=== PATIENT | male | born 1960 | race Caucasian/White ===

== ENCOUNTER 2017-01-07 06:08 | Day surgery (SDC) | payer MEDICARE ==
[2017-01-07] MEDS ORDERED: Lactated Ringers 1,000 ML IV SCH (06:30)
[2017-01-07] MEDS ORDERED: Lactated Ringers 0 ML IV ONE (07:59)
[2017-01-07] MEDS ORDERED: DIPRIVAN 200 MG/20 ML IV ONE (08:00)
[2017-01-07 09:28] VITALS: BP 124/82; PULSE 87; O2SAT 96
--- NOTE | 2017-01-07 13:09 | OP ---
SURGERY DATE/TIME: 01/07/2017 0755 PREOPERATIVE DIAGNOSIS: History of colon polyps. POSTOPERATIVE DIAGNOSIS: Small rectal polyp. PROCEDURE: Colonoscopy with biopsy. SURGEON: Dr. Virk. ANESTHESIA: MAC. Medications given by anesthesia department. HISTORY: The patient is a 56 year-old white male patient presenting now for his third colonoscopy. He reports the previous two times he has had colon polyps removed. The patient was reappraised of the risks of the procedure including the risk of perforation, phlebitis, untoward reaction to medication, bleeding, and missed lesions. The patient verbalized his understanding and desired to have the procedure performed. DESCRIPTION OF PROCEDURE: The patient was given the medications by the anesthesia department. He had continuous pulse oximetry, ECG monitoring, intermittent blood pressure monitoring, and tidal CO2 monitoring during the examination. He was placed in the left lateral decubitus position. A digital rectal examination was performed and revealed normal anal sphincter tone and no masses and normal prostate. The flexible Olympus pediatric colonoscope was used to intubate the rectum. A view of the colon was developed sequentially to the cecum. Upon insertion and withdrawal was noted a small polyp in the rectum and this was biopsied using cold biopsy technique destroying the lesion. The scope was removed from the patient who tolerated the procedure well and was sent back to OP recovery in good condition. The prep was noted to be good.
== END 2017-01-07 09:05 | disposition home or self-care (01) ==
LOC: SDC 06:08
PROVIDERS: ATTEND Family Medicine
PROC: 0DBP8ZX Excision of Rectum, Via Natural or Artificial Opening Endoscopic, Diagnostic (ICD-10-PCS; principal; 2017-01-07)
DX: K62.1 Rectal polyp (principal); Z86.010 Personal history of colon polyps
CPT/HCPCS: 00810; 36415; 88305; J2704

== ENCOUNTER 2018-05-04 10:30 | Emergency (ER) | payer MEDICARE ==
[2018-05-04] MEDS ORDERED: Sodium Chloride 0.9% 1000 ML 1,000 ML IV STA (10:51)
--- NOTE | 2018-05-04 11:00 | ERPHSYRPT ---
- History of Present Illness Time Seen by Provider: 05/04/18 10:54 Source: patient Patient Subjective Stated Complaint: pt states on friday he was sitting in chair had heart burn and then passed out in chair, and was not seen at that time , today he states he is still dizzy, pain to right rib area, no cough or fever Triage Nursing Assessment: pt alert, walked in, resp easy, skin w/d/p. no edema , no cough. pt uses vapor cigs Physician History: mild to mod right chest pain ache and syncope on Friday, o/w no injury, feels unsteady, no visual disturbance, no fever Allergies/Adverse Reactions: Sulfa (Sulfonamide Antibiotics) Allergy (Mild, Verified 05/04/18 10:46) n/v hot cold Home Medications: Clonazepam [Klonopin] 1 mg PO BID 01/15/13 [History] Cyclobenzaprine HCl 10 mg [Cyclobenzaprine 10 MG] 10 mg PO BID 01/15/13 [ History] Fluoxetine HCl 20 mg [Prozac 20 MG] 40 mg PO DAILY 01/15/13 [History] Pregabalin [Lyrica] 300 mg PO BID PRN 01/15/13 [History] Esomeprazole Magnesium [Nexium] 40 mg PO DAILY PRN PRN 09/04/13 [History] Omeprazole 20 MG [Prilosec 20 mg] 20 mg PO BID 09/04/13 [History] Levothyroxine Sodium 50 Mcg [Synthroid 50 Mcg] 50 mcg PO DAILY 12/03/15 [ History] Lisinopril 10 mg [Zestril 10 MG] 20 mg PO HS 12/03/15 [History] Lovastatin 20 mg PO HS 12/03/15 [History] [place]-3/Dha/Epa/Fish Oil [Fish Oil Dr 500 mg Softgel] 3,000 mg PO BID 12/03/15 [ History] Insulin Aspart [Novolog Flexpen] 10 unit SQ UD 01/07/17 [History] Insulin Glargine,Hum.rec.anlog [Lantus] 60 unit SQ HS 01/07/17 [History] Hx Influenza Vaccination/Date Given: No Hx Pneumococcal Vaccination/Date Given: No Immunizations Up to Date: Yes - Past Medical History Pertinent Past Medical History: Yes Neurological History: Migraines, Peripheral Neuropathy ENT History: No Pertinent History Cardiac History: Hypertension Respiratory History: Pneumonia Endocrine Medical History: Diabetes Type II Musculoskeletal History: Arthritis, Fibromyalgia, Fractures, Osteoarthritis GI Medical History: GERD, Hemorrhoids, Irritable Bowel, Polyps History: No Pertinent History Psycho-Social History: Anxiety, Depression, Panic Disorder Male Reproductive Disorders: Other Other Medical History: forgetfullness thats progressive - Past Surgical History Past Surgical History: Yes Neuro Surgical History: No Pertinent History Cardiac: No Pertinent History Respiratory: No Pertinent History Gastrointestinal: No Pertinent History, Other Genitourinary: No Pertinent History Musculoskeletal: Orthopedic Surgery Male Surgical History: No Pertinent History Other Surgical History: back, rt side carpal tunnel surgery, wart removal, colonoscopy with polyp removal. - Social History Smoking Status: Never smoker How long have you smoked: 40 Exposure to second hand smoke: Yes Drug Use: marijuana Patient Lives Alone: No - Review of Systems Constitutional: No Fever Eyes: No Vision Changes Ears, Nose, & Throat: No Mouth Pain Respiratory: No Dyspnea Cardiac: Chest Pain Abdominal/Gastrointestinal: No Vomiting Genitourinary Symptoms: No Dysuria Musculoskeletal: No Neck Pain Skin: No Rash Neurological: Dizziness Physical Exam - Nursing Vital Signs Nursing Vital Signs: Initial Vital Signs Temperature 97.2 F 05/04/18 10:33 Pulse Rate 85 05/04/18 10:33 Respiratory Rate 16 05/04/18 10:33 Blood Pressure 162/87 05/04/18 10:33 O2 Sat by Pulse Oximetry 98 05/04/18 10:33 Pain Scale Pain Intensity 3 - Juan Coma Scale Best Eye Response (Juan): (4) open spontaneously Best Verbal Response (Juan): (5) oriented Best Motor Response (Juan): (6) obeys commands [place] Total: 15 - Physical Exam Eye Exam: bilateral eye: PERRL, EOMI Ears, Nose, Throat Exam: normal ENT inspection Neck Exam: normal inspection Respiratory: lungs clear, No respiratory distress Cardiovascular: regular rate/rhythm Gastrointestinal: soft, No tenderness Extremity Exam: normal range of motion Mental Status: alert, oriented x 3, cooperative screen stretcher Exam: normal speech, PERRL Motor/Sensory: no motor deficit Skin Exam: normal color, warm, dry SpO2 Interpretation: normal SpO2: 98 Oxygen Delivery: Room Air - Course Nursing assessment & vital signs reviewed: Yes EKG Interpreted by Me: Other (nsr 70 no stemi, similar to 11/2015) - Radiology Exams Chest X-ray Interpretation: Discussed w/ radiologist, Negative - CT Exams Head CT Interpretation: Discussed w/radiologist, Other (no bleed) Ordered Tests: Active Orders 24 hr Category Date Time Status It Security Architect STAT Care 05/04/18 10:51 Active EKG-ER Only STAT Care 05/04/18 10:51 Active IV Insertion STAT Care 05/04/18 10:51 Active Nursing [Miscellaneous Nursing Order] ROUTINE Care 05/04/18 12:54 Active CHEST 1 VIEW (PORTABLE) Stat Exams 05/04/18 11:00 Completed HEAD WITHOUT CONTRAST [CT] Stat Exams 05/04/18 10:51 Completed CBC W DIFF Stat Lab 05/04/18 11:00 Completed CMP Stat Lab 05/04/18 11:00 Completed ETHYL ALCOHOL Stat Lab 05/04/18 11:00 Completed PROTIME WITH INR Stat Lab 05/04/18 11:00 Completed TROPONIN Q3H Lab 05/04/18 11:00 Completed TROPONIN Q3H Lab 05/04/18 14:25 Completed TROPONIN Q3H Lab 05/04/18 17:00 Ordered TROPONIN Q3H Lab 05/04/18 20:00 Ordered TROPONIN Q3H Lab 05/04/18 23:00 Ordered Medication Summary Discontinued Medications Generic Name Dose Route Start Last Admin Trade Name Freq PRN Reason Stop Dose Admin Sodium Chloride 1,000 mls @ 999 mls/hr 05/04/18 10:51 05/04/18 13:32 Sodium Chloride 0.9% 1000 Ml IV 05/04/18 11:51 Infused .Q1H1M STA Infusion Sodium Chloride Confirm 05/04/18 11:01 Sodium Chloride 0.9% 1000 Ml Administered 05/04/18 11:02 Dose 1,000 mls @ ud .ROUTE .STK-MED ONE Lab/Rad Data: Laboratory Result Diagrams 05/04/18 11:00 05/04/18 11:00 Laboratory Results 05/04/18 05/04/18 05/04/18 Range/Units 14:25 11:00 11:00 WBC (4.0-10.5) K/mm3 RBC (4.1-5.6) M/mm3 Hgb (12.5-18.0) gm/dl Hct (42-50) % MCV (78-100) fl MCH (26-32) pg MCHC (32-36) g/dl RDW (11.5-14.0) % Plt Count (150-450) K/mm3 MPV (6-9.5) fl Gran % (36.0-66.0) % Eos # (Auto) (0-0.5) Absolute Lymphs (auto) (1.0-4.6) Absolute Monos (auto) (0.0-1.3) Lymphocytes % (24.0-44.0) % Monocytes % (0.0-12.0) % Eosinophils % (0.00-5.0) % Basophils % (0.0-0.4) % Absolute Granulocytes (1.4-6.9) Basophils # (0-0.4) PT 11.9 (8.83-12.87) SECONDS INR 1.02 (0.8-3.0) Sodium (137-145) mmol/L Potassium (3.5-5.1) mmol/L Chloride (98-107) mmol/L Carbon Dioxide (22-30) mmol/L Anion Gap (5-15) MEQ/L BUN (9-20) mg/dL Creatinine (0.66-1.25) mg/dL Estimated GFR ML/MIN Glucose (74-106) mg/dL Calcium (8.4-10.2) mg/dL Total Bilirubin (0.2-1.3) mg/dL AST (17-59) U/L ALT (0-50) U/L Alkaline Phosphatase (38-126) U/L Troponin I < 0.012 < 0.012 (0.000-0.034) ng/mL Serum Total Protein (6.3-8.2) g/dL Albumin (3.5-5.0) g/dL Ethyl Alcohol (0-10) mg/dL 05/04/18 05/04/18 Range/Units 11:00 11:00 WBC 4.2 (4.0-10.5) K/mm3 RBC 4.31 (4.1-5.6) M/mm3 Hgb 13.3 (12.5-18.0) gm/dl Hct 39.4 L (42-50) % MCV 91.4 (78-100) fl MCH 30.9 (26-32) pg MCHC 33.8 (32-36) g/dl RDW 13.0 (11.5-14.0) % Plt Count 174 (150-450) K/mm3 MPV 10.2 H (6-9.5) fl Gran % 53.7 (36.0-66.0) % Eos # (Auto) 0.21 (0-0.5) Absolute Lymphs (auto) 1.47 (1.0-4.6) Absolute Monos (auto) 0.24 (0.0-1.3) Lymphocytes % 34.7 (24.0-44.0) % Monocytes % 5.7 (0.0-12.0) % Eosinophils % 5.0 (0.00-5.0) % Basophils % 0.9 (0.0-0.4) % Absolute Granulocytes 2.28 (1.4-6.9) Basophils # 0.04 (0-0.4) PT (8.83-12.87) SECONDS INR (0.8-3.0) Sodium 144 (137-145) mmol/L Potassium 4.4 (3.5-5.1) mmol/L Chloride 107 (98-107) mmol/L Carbon Dioxide 27 (22-30) mmol/L Anion Gap 14.4 (5-15) MEQ/L BUN 17 (9-20) mg/dL Creatinine 1.11 (0.66-1.25) mg/dL Estimated GFR > 60.0 ML/MIN Glucose 158 H (74-106) mg/dL Calcium 9.6 (8.4-10.2) mg/dL Total Bilirubin 0.30 (0.2-1.3) mg/dL AST 30 (17-59) U/L ALT 35 (0-50) U/L Alkaline Phosphatase 61 (38-126) U/L Troponin I (0.000-0.034) ng/mL Serum Total Protein 7.6 (6.3-8.2) g/dL Albumin 4.6 (3.5-5.0) g/dL Ethyl Alcohol < 10 (0-10) mg/dL - Progress Progress: improved Progress Note: 05/04/18 15:29 pt aox3, nad, leaves ama, pt aware he could suddenly or become permanently disabled, pt aware he may return at anytime Counseled pt/family regarding: lab results, diagnosis, need for follow-up, rad results - Departure Time of Disposition: 15:30 Departure Disposition: AMA Clinical Impression: Syncope Qualifiers: Syncope type: unspecified Qualified Code(s): R55 - Syncope and collapse Condition: Stable Critical Care Time: No Referrals: IGNACIO BYNUM [Primary Care Provider] -
[2018-05-04] MEDS ORDERED: Sodium Chloride 0.9% 1000 ML 1,000 ML ONE (11:01)
[2018-05-04 11:16] LABS: BASOPHIL % 0.9 % (0.0-0.4); Basophil (Absolute #) 0.04 (0-0.4); Eosinophil (Absolute #) 0.21 (0-0.5); Granulocyte Absolute (ANC) 2.28 (1.4-6.9); Granulocytes % 53.7 % (36.0-66.0); Hematocrit 39.4 % (42-50); Hemoglobin 13.3 gm/dl (12.5-18.0); Lymphocyte (Absolute #) 1.47 (1.0-4.6); Lymphocytes % 34.7 % (24.0-44.0); Mean Cell Volume 91.4 fl (78-100); Mean Corpuscular Hemoglobin 30.9 pg (26-32); Mean Corpuscular Hgb Concent. 33.8 g/dl (32-36); Mean Platelet Volume 10.2 fl (6-9.5); Monocyte (Absolute #) 0.24 (0.0-1.3); Monocytes % 5.7 % (0.0-12.0); Platelet Count 174 K/mm3 (150-450); Red Blood Count 4.31 M/mm3 (4.1-5.6); White Blood Count 4.2 K/mm3 (4.0-10.5)
--- NOTE | 2018-05-04 11:34 | XRAY ---
Indication: Syncope and dizziness. Comparison: December 03, 2015. Portable chest again demonstrates normal heart and lungs. Bony thorax intact. No new/acute findings.
--- NOTE | 2018-05-04 11:34 | XRAY ---
Indication: Syncope and dizziness. Multiple contiguous axial images obtained through the head without contrast. Comparison: None Normal appearing brain parenchyma, ventricles, and bony calvarium. Visualized paranasal sinuses and mastoid air cells are clear. Impression: Normal CT head without contrast exam. CT DI 70.77
[2018-05-04 11:35] LABS: ALBUMIN 4.6 g/dL (3.5-5.0); ALKALINE PHOSPHATASE 61 U/L (38-126); ANION GAP 14.4 MEQ/L (5-15); BLOOD UREA NITROGEN 17 mg/dL (9-20); CHLORIDE 107 mmol/L (98-107); Calcium 9.6 mg/dL (8.4-10.2); Carbon Dioxide 27 mmol/L (22-30); Creatinine 1 1.11 mg/dL (0.66-1.25); Glucose 158 mg/dL (74-106); Potassium 4.4 mmol/L (3.5-5.1); SGOT/AST 30 U/L (17-59); SGPT/ALT 35 U/L (0-50); SODIUM 144 mmol/L (137-145); Total Protein 7.6 g/dL (6.3-8.2)
[2018-05-04 11:40] LABS: ETHYL ALCOHOL < 10 mg/dL (0-10)
[2018-05-04 11:45] LABS: INR 1.02 (0.8-3.0)
[2018-05-04 14:21] VITALS: BP 151/82; PULSE 63
[2018-05-04 15:31] VITALS: O2SAT 98
== END 2018-05-04 15:35 | disposition left against medical advice (07) ==
LOC: ED 10:30
DX: R55 Syncope and collapse (principal); R07.9 Chest pain, unspecified; E11.9 Type 2 diabetes mellitus without complications; Z79.4 Long term (current) use of insulin; Z79.899 Other long term (current) drug therapy
CPT/HCPCS: 36000; 36415; 70450; 71045; 80053; 80307; 84484; 85025; 85610; 93005; 93041; 99284; G0480

== ENCOUNTER 2018-05-27 11:58 | Emergency (ER) | payer MEDICARE ==
[2018-05-27] MEDS ORDERED: Sodium Chloride 0.9% 1000 ML 1,000 ML IV SCH (12:15)
--- NOTE | 2018-05-27 12:23 | ERPHSYRPT ---
- History of Present Illness Time Seen by Provider: 05/27/18 12:04 Source: patient, family Exam Limitations: no limitations Patient Subjective Stated Complaint: pt had sycopal epidsode last night and is here today for neck, low back, both knees,and left foot , left hand pain. was seen at [facility] today and told to come here to get foot looked at Triage Nursing Assessment: pt has sweling,bruising and tenderness to left foot, no swelling but tenderness to left knee but no swelling,no swelling or bruising to left had. pt alert and follows commands well, skin w/d/p. Physician History: patient referred here for xr by his Manager [employer] after being evaluated there for a recurrent syncopal episode last pm; The Manager [employer] is doing the syncope workup; prior hx of syncope, was standing and went down last pm; denies head injury; no seizure activity witnessed by family; out 1-2 minutes; no known head injury; pain in neck psot; lower back; left hand; left ankle and both knees now ; no numbness or weakness; no CARLIN; no incontinence; no fever; no CP or SOB; no N& V; no palpatations Witnessed: by family Prior Episodes: single episode today (last night), recent history (several episodes unknown why) Timing/Duration: hour(s) (12), sudden, improved Precipitating Factors: none (standing) Context: standing Loss of Consciousness: prolonged (minutes) (1-2) Charcter of event(s): became unresponsive (1-2 minutes), confused after event Allergies/Adverse Reactions: Sulfa (Sulfonamide Antibiotics) Allergy (Mild, Verified 05/27/18 12:13) n/v hot cold Home Medications: Clonazepam [Klonopin] 1 mg PO BID 01/15/13 [History] Cyclobenzaprine HCl 10 mg [Cyclobenzaprine 10 MG] 10 mg PO BID 01/15/13 [ History] Fluoxetine HCl 20 mg [Prozac 20 MG] 40 mg PO DAILY 01/15/13 [History] Pregabalin [Lyrica] 300 mg PO BID PRN 01/15/13 [History] Esomeprazole Magnesium [Nexium] 40 mg PO DAILY PRN PRN 09/04/13 [History] Omeprazole 20 MG [Prilosec 20 mg] 20 mg PO BID 09/04/13 [History] Levothyroxine Sodium 50 Mcg [Synthroid 50 Mcg] 50 mcg PO DAILY 12/03/15 [ History] Lisinopril 10 mg [Zestril 10 MG] 20 mg PO HS 12/03/15 [History] Lovastatin 20 mg PO HS 12/03/15 [History] [place]-3/Dha/Epa/Fish Oil [Fish Oil Dr 500 mg Softgel] 3,000 mg PO BID 12/03/15 [ History] Insulin Aspart [Novolog Flexpen] 10 unit SQ UD 01/07/17 [History] Insulin Glargine,Hum.rec.anlog [Lantus] 60 unit SQ HS 01/07/17 [History] Hx Influenza Vaccination/Date Given: No Hx Pneumococcal Vaccination/Date Given: No Immunizations Up to Date: Yes - Past Medical History Pertinent Past Medical History: Yes Neurological History: Migraines, Peripheral Neuropathy, Other (frequent syncopal episodes recently) ENT History: No Pertinent History Cardiac History: Hypertension Respiratory History: Pneumonia Endocrine Medical History: Diabetes Type II Musculoskeletal History: Arthritis, Fibromyalgia, Fractures, Osteoarthritis GI Medical History: GERD, Hemorrhoids, Irritable Bowel, Polyps History: No Pertinent History Psycho-Social History: Anxiety, Depression, Panic Disorder Male Reproductive Disorders: Other Other Medical History: forgetfullness thats progressive - Past Surgical History Past Surgical History: Yes Neuro Surgical History: No Pertinent History Cardiac: No Pertinent History Respiratory: No Pertinent History Gastrointestinal: No Pertinent History, Other Genitourinary: No Pertinent History Musculoskeletal: Orthopedic Surgery Male Surgical History: No Pertinent History Other Surgical History: back, rt side carpal tunnel surgery, wart removal, colonoscopy with polyp removal. - Social History Smoking Status: Current every day smoker How long have you smoked: vapor Exposure to second hand smoke: Yes Alcohol Use: None Drug Use: marijuana Patient Lives Alone: Yes Significant Family History: no pertinent family hx - Female History Hx Now: No - Review of Systems Constitutional: No Symptoms Eyes: Vision Changes, No Eye Pain, No Photophobia Ears, Nose, & Throat: No Symptoms Respiratory: No Cough, No Dyspnea, No Wheezing Cardiac: Syncope, No Chest Pain, No Palpitations, No Orthopnea Abdominal/Gastrointestinal: No Abdominal Pain, No Nausea, No Vomiting, No Diarrhea Genitourinary Symptoms: No Dysuria, No Hematuria, No Incontinence, No Flank Pain Musculoskeletal: Back Pain, Neck Pain, Fall, Injury (pain in neck; low back; left hand; knees and left ankle), Joint Pain (left ankle and knees), Joint Swelling (left ankle and foot) Skin: No Symptoms Neurological: Other (syncope), No Headache, No Paralysis, No Seizure Psychological: No Symptoms Endocrine: No Symptoms Hematologic/Lymphatic: No Symptoms Physical Exam - Nursing Vital Signs Nursing Vital Signs: Initial Vital Signs Temperature 98.4 F 05/27/18 12:01 Pulse Rate 95 H 05/27/18 12:01 Respiratory Rate 16 05/27/18 12:01 Blood Pressure 114/82 05/27/18 12:01 O2 Sat by Pulse Oximetry 68 L 05/27/18 12:01 Pain Scale Pain Intensity 8 - Juan Coma Scale Best Eye Response ([place]): (4) open spontaneously Best Verbal Response ([place]): (5) oriented Best Motor Response (Juan): (6) obeys commands Juan Total: 15 - Physical Exam General Appearance: mild distress, alert, thin Eye Exam: bilateral eye: normal inspection, PERRL, EOMI, other (grossly wnl; fundi benign) Ears, Nose, Throat Exam: normal ENT inspection, TMs normal, pharynx normal, moist mucous membranes Neck Exam: normal inspection, supple, full range of motion, midline tenderness ( mild), other (pain with rotation L=R), No meningismus, No JVD, No subcutaneous emphysema Respiratory: normal breath sounds, lungs clear, airway intact, No chest tenderness, No respiratory distress, No crackles/rales, No rhonchi, No wheezing Cardiovascular: regular rate/rhythm, normal heart sounds, normal peripheral pulses, capillary refill <2 sec, No murmur Gastrointestinal: soft, normal bowel sounds, No tenderness, No guarding, No rebound, No organomegaly Rectal Exam: deferred Back Exam: normal inspection, normal range of motion, muscle spasm (soreness bialteral lower back), No CVA tenderness, No vertebral tenderness, No rash, No decreased range of motion, No point tenderness Extremity Exam: normal range of motion, pelvis stable, limited range of motion ( ;eft ankle), swelling (left hand and left ankle and foot lat>med), tenderness ( left 5th MC hand; left lateral malleolus L ankle and prox 5th MT left foot; bilateral knees genrealized; ), other (no foot drop; no effusion of knees; knees stable to stress;), No calf tenderness, No gonzález's sign, No pedal edema Peripheral Pulses: carotid (R): 4+, carotid (L): 4+, femoral (R): 4+, femoral (L ): 4+ Mental Status: alert, oriented x 3, cooperative exchange administrator Exam: normal hearing, normal speech, PERRL Coordination/Gait: No normal gait (due to pain and swelling left ankle and foot) Motor/Sensory: no motor deficit, no sensory deficit, no pronator drift DTR: knee (R): 4+, knee (L): 4+ Skin Exam: normal color, warm, dry, ecchymosis (medial left ankle distal), No rash, No petechiae, No jaundice SpO2 Interpretation: normal SpO2: 98 Oxygen Delivery: Room Air Procedures - Splinting Location of Splint: Left, Ankle Type of Splint: Walking Boot/Shoe Splint Applied By: ED Nurse Pre-Proc Neuro Vasc Exam: normal Post-Proc Neuro Vasc Exam: neurovascular intact Progress: patient tolerated well - Course Nursing assessment & vital signs reviewed: Yes - Radiology Exams Left Hand X-ray Interpretation: Reviewed by me, Teleradiologist Report, Negative Left Knee X-ray Interpretation: Reviewed by me, Teleradiologist Report, Negative, Other ( DJD) Right Knee X-ray Interpretation: Reviewed by me, Teleradiologist Report, Negative, Other ( djd) Left Foot X-ray Interpretation: Reviewed by me, Teleradiologist Report, Negative L-Spine X-ray Interpretation: Reviewed by me, Teleradiologist Report, Negative, Other ( djd) - CT Exams Head CT Interpretation: Negative, Tele-radiologist Report Cervical Spine CT Interpretation: Negative, Tele-radiologist Report, DJD Ordered Tests: Active Orders 24 hr Category Date Time Status Accucheck STAT Care 05/27/18 12:12 Active Research Clerk STAT Care 05/27/18 12:13 Active Cold Application STAT Care 05/27/18 13:44 Active Crutches STAT Care 05/27/18 13:44 Active IV Insertion STAT Care 05/27/18 12:12 Active Orthostatic Vital Signs STAT Care 05/27/18 12:12 Active Pulse Oximetry (ED) STAT Care 05/27/18 12:12 Active Re-Check Vital Signs STAT Care 05/27/18 12:12 Active Splint STAT Care 05/27/18 13:44 Active ANKLE (3 VIEWS) Stat Exams 05/27/18 12:15 Completed CERVICAL SPINE WO CONTRAST [CT] Stat Exams 05/27/18 12:13 Completed FOOT (MINIMUM 3 VIEWS) Stat Exams 05/27/18 12:15 Completed HAND (MINIMUM 3 VIEWS) Stat Exams 05/27/18 12:15 Completed HEAD WITHOUT CONTRAST [CT] Stat Exams 05/27/18 12:13 Completed KNEE (1 OR 2 VIEW) Stat Exams 05/27/18 12:16 Completed KNEE (3 VIEWS) Stat Exams 05/27/18 12:15 Completed LUMBAR LIMITED (2 OR 3 VIEWS) Stat Exams 05/27/18 12:15 Completed BMP Stat Lab 05/27/18 13:20 Completed CBC W DIFF Stat Lab 05/27/18 13:20 Completed PROTIME WITH INR Stat Lab 05/27/18 13:20 Stop Req Medication Summary Generic Name Dose Route Start Last Admin Trade Name Freq PRN Reason Stop Dose Admin Sodium Chloride 1,000 mls @ 100 mls/hr 05/27/18 12:15 05/27/18 12:52 Sodium Chloride 0.9% 1000 Ml IV 06/26/18 12:14 100 mls/hr .Q10H RADHA Administration Discontinued Medications Generic Name Dose Route Start Last Admin Trade Name Freq PRN Reason Stop Dose Admin Hydrocodone Bitart/Acetaminophen 1 tab 05/27/18 13:43 05/27/18 13:52 [place] 5/325 Mg PO 05/27/18 13:44 1 tab STAT ONE Administration Hydrocodone Bitart/Acetaminophen Confirm 05/27/18 13:50 [place] 5/325 Mg Administered 05/27/18 13:51 Dose 1 tab .ROUTE .STK-MED ONE Lab/Rad Data: Laboratory Result Diagrams 05/27/18 13:20 05/27/18 13:20 Laboratory Results 05/27/18 05/27/18 Range/Units 13:20 13:20 WBC 6.7 (4.0-10.5) K/mm3 RBC 4.01 L (4.1-5.6) M/mm3 Hgb 12.6 (12.5-18.0) gm/dl Hct 36.5 L (42-50) % MCV 91.0 (78-100) fl MCH 31.4 (26-32) pg MCHC 34.5 (32-36) g/dl RDW 13.4 (11.5-14.0) % Plt Count 193 (150-450) K/mm3 MPV 10.6 H (6-9.5) fl Gran % 63.9 (36.0-66.0) % Eos # (Auto) 0.25 (0-0.5) Absolute Lymphs (auto) 1.46 (1.0-4.6) Absolute Monos (auto) 0.67 (0.0-1.3) Lymphocytes % 21.9 L (24.0-44.0) % Monocytes % 10.1 (0.0-12.0) % Eosinophils % 3.8 (0.00-5.0) % Basophils % 0.3 (0.0-0.4) % Absolute Granulocytes 4.26 (1.4-6.9) Basophils # 0.02 (0-0.4) Sodium 136 L (137-145) mmol/L Potassium 4.1 (3.5-5.1) mmol/L Chloride 102 (98-107) mmol/L Carbon Dioxide 24 (22-30) mmol/L Anion Gap 14.4 (5-15) MEQ/L BUN 30 H (9-20) mg/dL Creatinine 1.67 H (0.66-1.25) mg/dL Estimated GFR 45.0 ML/MIN Glucose 128 H (74-106) mg/dL Calcium 9.3 (8.4-10.2) mg/dL reviewed - Progress Progress: improved, re-examined (after xr and CT) Progress Note: 05/27/18 12:32 family at bedside and confirmed hx; lab and xr pending; will monitor and recheck ; 05/27/18 13:42 discussed findings with patient and family- will place in booot and crutches and refer to Ortho; will medicate and recheck; 05/27/18 14:30 Dr Clemente consulted and will see in the office today; labs reasonable; patietn fitted with crutches and ankle immobilized with instructions to take xr to dr Duncan office now; pain meds given; instructions given; no NV compromise post application Discussed with Dr.: Other (Dr Christopher consulted and will see in the office today wit xr) Counseled pt/family regarding: lab results, diagnosis, need for follow-up, rad results - Departure Time of Disposition: 14:33 Departure Disposition: Home Clinical Impression: Syncope, acute fracture distal left fibula, Neck pain, acute, Contusion of left hand, bilateral knee contusion, acute lower back strain Condition: Stable Critical Care Time: No Referrals: IGNACIO BYNUM [Primary Care Provider] - NATE ORTIZ [NON-STAFF PHY W/O PRIVILEGES] - Additional Instructions: Acute Sprain Instructions lower extremity; R.I.C.E.; wear splint/immobilyzer as directed; observe for neuro-vascular compromise ( change in color; increased pain; cold to touch); Use crutches, walker, cane as directed. Dr Barron specialist as directed; call for appointment as directed; Return if problems; Take meds as prescribed. Follow-up with family doctor as directed. Call for appointment. Return if any problems. If you smoke please stop. Call or follow up with your family doctor for assistance if you need it to stop. Please wear your seatbelt when driving. Have a nice day. Thank you for allowing us to participate in your care today. :o) Dr Rey Mcrae
[2018-05-27] MEDS ORDERED: Sodium Chloride 0.9% 1000 ML 1,000 ML ONE (12:50)
--- NOTE | 2018-05-27 13:11 | XRAY ---
Indication: Pain following fall. Multiple contiguous axial images obtained through the head without contrast. Comparison: May 04, 2018. Again normal appearing brain parenchyma, ventricles, and bony calvarium. Visualized paranasal sinuses and mastoid air cells are clear. Impression: Stable normal CT head without contrast exam. CTDI 51.17
--- NOTE | 2018-05-27 13:15 | XRAY ---
Indication: Pain following fall. Comparison: None 3 views of the left ankle demonstrates minimally displaced oblique fracture involving the lateral malleolus with soft tissue swelling. No other bony, articular, or soft tissue abnormalities.
--- NOTE | 2018-05-27 13:15 | XRAY ---
Indication: Pain following fall. Comparison: None 3 nonweightbearing views of the left foot demonstrates minimally displaced oblique fracture involving the lateral malleolus with soft tissue swelling. No other bony, articular, or soft tissue abnormalities.
--- NOTE | 2018-05-27 13:15 | XRAY ---
Indication: Pain following fall. Multiple contiguous axial images obtained through the cervical spine. Sagittal and coronal reformatted images obtained. Comparison: None Axial images negative for acute fracture, suspicious bony lesions, or spinal canal stenosis. Mild C3-C4 endplate and right uncal vertebral spurring producing right foraminal stenosis. Lesser C6-C7 endplate spurring. Sagittal and coronal reformatted images demonstrates cervical lordotic straining, positional versus paraspinal spasm. C3-C4 and C6-C7 disc space narrowing. No acute compression fracture, subluxation, or jumped facet. Normal appearing craniocervical junction. Visualized noncontrasted soft tissues including on apices unremarkable. CT head reported separately. Impression: 1. Negative for acute fracture or subluxation. 2. Cervical lordotic straining, positional versus paraspinal spasm. 3. C3-C4 and C6-C7 degenerative disc disease. CT DI 54.96
--- NOTE | 2018-05-27 13:17 | XRAY ---
Indication: Pain following fall. Comparison: None 3 views of the left hand obtained. No bony, articular, or soft tissue abnormalities.
--- NOTE | 2018-05-27 13:19 | XRAY ---
Indication: Pain following fall. Comparison: None 3 views of the left knee demonstrates minimal medial joint space narrowing/spurring, lateral compartment degenerative chondrocalcinosis, and tiny suprapatellar spurring. No other bony, articular, or soft tissue abnormalities.
--- NOTE | 2018-05-27 13:21 | XRAY ---
Indication: Pain following fall. Comparison: None 2 views of the right knee demonstrates minimal/mild tricompartmental degenerative changes, greatest patellofemoral compartment with small nonspecific suprapatellar effusion and faint well-circumscribed heterotopic ossifications. No other bony, articular, or soft tissue abnormalities.
--- NOTE | 2018-05-27 13:25 | XRAY ---
Indication: Back pain following fall. Comparison: None 3 views of the lumbar spine demonstrates 5 lumbar vertebral segments with disc spaces maintained and mild multilevel degenerative endplate spurring, L5 spina bifida defect, and remote appearing minimal T12-L2 anterior wedging. No acute fracture, subluxation, or soft tissue abnormalities.
[2018-05-27] MEDS ORDERED: NORCO 5/325 MG PO ONE (13:43)
[2018-05-27] MEDS ORDERED: NORCO 5/325 MG ONE (13:50)
[2018-05-27 14:13] LABS: ANION GAP 14.4 MEQ/L (5-15); Calcium 9.3 mg/dL (8.4-10.2); Creatinine 1 1.67 mg/dL (0.66-1.25); Potassium 4.1 mmol/L (3.5-5.1)
[2018-05-27 14:25] LABS: BASOPHIL % 0.3 % (0.0-0.4); Basophil (Absolute #) 0.02 (0-0.4); Eosinophil % 3.8 % (0.00-5.0); Eosinophil (Absolute #) 0.25 (0-0.5); Granulocyte Absolute (ANC) 4.26 (1.4-6.9); Granulocytes % 63.9 % (36.0-66.0); Hematocrit 36.5 % (42-50); Hemoglobin 12.6 gm/dl (12.5-18.0); Lymphocyte (Absolute #) 1.46 (1.0-4.6); Lymphocytes % 21.9 % (24.0-44.0); Mean Corpuscular Hemoglobin 31.4 pg (26-32); Mean Corpuscular Hgb Concent. 34.5 g/dl (32-36); Mean Platelet Volume 10.6 fl (6-9.5); Monocyte (Absolute #) 0.67 (0.0-1.3); Monocytes % 10.1 % (0.0-12.0); Platelet Count 193 K/mm3 (150-450); Red Blood Count 4.01 M/mm3 (4.1-5.6); Red Cell Distribution Width 13.4 % (11.5-14.0); White Blood Count 6.7 K/mm3 (4.0-10.5)
[2018-05-27 14:30] VITALS: BP 134/79; PULSE 84
[2018-05-27 14:35] VITALS: O2SAT 98
[2018-05-27 14:48] LABS: INR 1.07 (0.8-3.0)
== END 2018-05-27 15:19 | disposition home or self-care (01) ==
LOC: ED 11:58
DX: R55 Syncope and collapse (principal); S82.402A Unspecified fracture of shaft of left fibula, initial encounter for closed fracture; M54.2 Cervicalgia; S60.222A Contusion of left hand, initial encounter; S80.02XA Contusion of left knee, initial encounter; S80.01XA Contusion of right knee, initial encounter; M25.562 Pain in left knee; M25.561 Pain in right knee; M25.572 Pain in left ankle and joints of left foot; M54.5 Low back pain; S39.012A Strain of muscle, fascia and tendon of lower back, initial encounter; W18.30XA Fall on same level, unspecified, initial encounter; Z79.899 Other long term (current) drug therapy
CPT/HCPCS: 36415; 70450; 72100; 72125; 73130; 73560; 73562; 73610; 73630; 80048; 80061; 82962; 83721; 84443; 84460; 85025; 85610; 93041; 93225; 96360; 99284; L4386; A9270-GY

== ENCOUNTER 2019-09-12 08:47 | Emergency (ER) | payer MEDICARE ==
[2019-09-12] MEDS ORDERED: Protonix 40MG Tablet PO ONE (09:07)
[2019-09-12] MEDS ORDERED: Sodium Chloride 0.9% 1000 ML 1,000 ML IV STA ×2 (09:07→09:54)
[2019-09-12] MEDS ORDERED: Zofran 4 MG/2 ML VIAL IV ONE ×2 (09:07→10:30)
--- NOTE | 2019-09-12 09:11 | ERPHSYRPT ---
- History of Present Illness Time Seen by Provider: 09/12/19 08:55 Source: patient, family Exam Limitations: no limitations Physician History: The patient is a 59-year-old male who presents with a chief complaint nausea, vomiting, and diarrhea. Onset reportedly was 2 days ago. He reportedly suffers from an enlarged prostate and has had to strain when urinating in addition to adenosine frequent urination and weak stream for which he underwent a biopsy of his prostate on September 07, 2019. Since that time, he reportedly was feeling well 2 days after his biopsy but 48 hours ago he started to experience the above GI symptoms. He endorses having subjective fevers in addition the chills and also complained of epigastric pain that is described as a cramping pain that was nonradiating mild and constant. He reportedly has had decreased appetite since the onset of his symptoms Has not taken anything for his pain nor for his nausea or vomiting. Is accompanied by his to provide details pertaining to the history of present illness. The patient is a former smoker and consumes alcohol infrequently and has no recent alcohol consumption. He states he does smoke marijuana frequently and the last time he saw marijuana was yesterday. Timing/Duration: day(s) (2) Severity: moderate Associated Symptoms: nausea, vomiting, abdominal pain, loss of appetite, other ( Diarrhea), No shortness of breath, No diaphoresis, No cough, No chest pain Allergies/Adverse Reactions: Sulfa (Sulfonamide Antibiotics) Allergy (Mild, Verified 09/12/19 09:07) n/v hot cold Home Medications: Pregabalin [Lyrica] 150 mg PO BID 01/15/13 [History] Levothyroxine Sodium 50 Mcg [Synthroid 50 Mcg] 50 mcg PO DAILY 12/03/15 [ History] ARIPiprazole [Aripiprazole] 5 mg PO DAILY 09/12/19 [History] Aspirin EC 81 mg [Ecotrin 81 mg] 81 mg PO DAILY 09/12/19 [History] Atorvastatin Calcium [Lipitor] 80 mg PO DAILY 09/12/19 [History] Empagliflozin [Jardiance] 25 mg PO DAILY 09/12/19 [History] Fenofibrate Nanocrystallized [Fenofibrate] 48 mg PO DAILY 09/12/19 [History] Metformin HCl 500 mg [Glucophage 500 MG] 500 mg PO BIDWM 09/12/19 [History ] Ropinirole HCl 1 mg PO HS 09/12/19 [History] Tamsulosin HCl 0.4 mg PO BID 09/12/19 [History] Hx Influenza Vaccination/Date Given: No Hx Pneumococcal Vaccination/Date Given: No - Review of Systems Constitutional: Fever, Chills Eyes: No Eye Pain, No Photophobia, No Foreign Body Sensation Ears, Nose, & Throat: No Symptoms Respiratory: No Cough, No Cyanosis, No Dyspnea, No Dyspnea on Exertion (MANN) Cardiac: No Chest Pain, No Palpitations, No Syncope, No Orthopnea Abdominal/Gastrointestinal: Abdominal Pain, Nausea, Vomiting, Diarrhea Genitourinary Symptoms: Frequency, Other (Straining and weak stream), No Dysuria Skin: No Symptoms Neurological: No Symptoms Psychological: No Symptoms Endocrine: No Symptoms All Other Systems: Reviewed and Negative - Past Medical History Pertinent Past Medical History: Yes Neurological History: Seizures ENT History: No Pertinent History Cardiac History: Angina, Arrhythmia, High Cholesterol, Hypertension, Myocardial Infarction (DC) Respiratory History: Pneumonia Endocrine Medical History: Diabetes Type II Musculoskeletal History: Arthritis, Fractures GI Medical History: GERD, Hemorrhoids, Irritable Bowel, Polyps History: No Pertinent History Psycho-Social History: Anxiety, Depression, Panic Disorder Male Reproductive Disorders: Other Other Medical History: Possible hx of DC; pt is unsure and cites hx of passing out at his sister's house. - Past Surgical History Past Surgical History: Yes Neuro Surgical History: No Pertinent History Cardiac: No Pertinent History Respiratory: No Pertinent History Gastrointestinal: No Pertinent History, Other Genitourinary: No Pertinent History Musculoskeletal: Orthopedic Surgery Male Surgical History: No Pertinent History Other Surgical History: back, rt side carpal tunnel surgery, wart removal, colonoscopy with polyp removal. - Social History Smoking Status: Current every day smoker How long have you smoked: vapor Exposure to second hand smoke: Yes Alcohol Use: None Drug Use: marijuana Patient Lives Alone: Yes Significant Family History: no pertinent family hx - Nursing Vital Signs Nursing Vital Signs: Initial Vital Signs Temperature 97.8 F 09/12/19 08:54 Pulse Rate 90 09/12/19 08:54 Respiratory Rate 12 09/12/19 08:54 Blood Pressure 171/89 09/12/19 08:54 O2 Sat by Pulse Oximetry 100 01/05/20 08:54 Pain Scale Pain Intensity 0 - Physical Exam General Appearance: no apparent distress Eye Exam: PERRL/EOMI, eyes nml inspection Ears, Nose, Throat Exam: normal ENT inspection, pharynx normal, other (No teeth present), No pharyngeal erythema, No tonsillar exudate Neck Exam: normal inspection, supple, No non-tender Respiratory Exam: normal breath sounds, lungs clear, airway intact, No respiratory distress, No diminished breath sounds, No accessory muscle use, No prolonged expirations, No wheezing Cardiovascular Exam: regular rate/rhythm, normal heart sounds, normal peripheral pulses, capillary refill <2 sec, No murmur, No friction rub, No gallop, No tachycardia Gastrointestinal/Abdomen Exam: soft, tenderness, other (Mild epigastric tenderness), No distention, No mass, No guarding, No ecchymosis, No rebound, No hernia, No hepatomegaly Rectal Exam: deferred Back Exam: normal inspection, No CVA tenderness Extremity Exam: normal inspection Neurologic Exam: alert, oriented x 3, cooperative Skin Exam: normal color, warm, dry, No rash, No petechiae SpO2 Interpretation: normal O2 Delivery: Room Air - Course Nursing assessment & vital signs reviewed: Yes EKG Interpreted by Me: RATE, Sinus Rhythm, Left Winslow Deviation, NORMAL INTERVALS , NORMAL ST-T Ordered Tests: Active Orders 24 hr Category Date Time Status Accucheck STAT Care 09/12/19 11:41 Active EKG-ER Only STAT Care 09/12/19 09:07 Active IV Insertion STAT Care 09/12/19 09:07 Active PO Fluid Challenge STAT Care 09/12/19 10:57 Active BMP Stat Lab 09/12/19 08:55 Completed CBC W DIFF Stat Lab 09/12/19 08:55 Completed CULTURE,URINE Stat Lab 09/12/19 09:33 Received Hepatic Function Panel Stat Lab 09/12/19 08:55 Completed LIPASE Stat Lab 09/12/19 08:55 Completed UA W/RFX UR CULTURE Stat Lab 09/12/19 09:33 Completed Medication Summary Generic Name Dose Route Start Last Admin Trade Name Freq PRN Reason Stop Dose Admin Dicyclomine HCl 20 mg 09/12/19 10:00 09/12/19 09:25 Bentyl 20 Mg PO 10/12/19 09:59 20 mg QID RADHA Administration Loperamide HCl 2 mg 09/12/19 10:30 09/12/19 10:39 Imodium 2 Mg PO 10/12/19 10:29 2 mg PRN PRN Administration DIARRHEA Discontinued Medications Generic Name Dose Route Start Last Admin Trade Name Freq PRN Reason Stop Dose Admin Sodium Chloride 1,000 mls @ 999 mls/hr 09/12/19 09:07 09/12/19 10:33 Sodium Chloride 0.9% 1000 Ml IV 09/12/19 10:07 Infused .Q1H1M STA Infusion Sodium Chloride Confirm 09/12/19 09:24 Sodium Chloride 0.9% 1000 Ml Administered 09/12/19 09:25 Dose 1,000 mls @ ud .ROUTE .STK-MED ONE Sodium Chloride 1,000 mls @ 999 mls/hr 09/12/19 09:54 09/12/19 10:59 Sodium Chloride 0.9% 1000 Ml IV 09/12/19 10:54 999 mls/hr .Q1H1M STA Administration Sodium Chloride Confirm 09/12/19 10:41 Sodium Chloride 0.9% 1000 Ml Administered 09/12/19 10:42 Dose 1,000 mls @ ud .ROUTE .STK-MED ONE Ondansetron HCl 4 mg 09/12/19 09:07 09/12/19 09:25 Zofran 4 Mg/2 Ml Vial IV 09/12/19 09:08 4 mg STAT ONE Administration Ondansetron HCl Confirm 09/12/19 09:24 Zofran 4 Mg/2 Ml Vial Administered 09/12/19 09:25 Dose 4 mg .ROUTE .STK-MED ONE Ondansetron HCl 4 mg 09/12/19 10:30 09/12/19 10:32 Zofran 4 Mg/2 Ml Vial IV 09/12/19 10:31 4 mg STAT ONE Administration Ondansetron HCl Confirm 09/12/19 10:29 Zofran 4 Mg/2 Ml Vial Administered 09/12/19 10:30 Dose 4 mg .ROUTE .STK-MED ONE Pantoprazole Sodium 40 mg 09/12/19 09:07 09/12/19 09:25 Protonix 40mg Tablet PO 09/12/19 09:08 40 mg STAT ONE Administration Pantoprazole Sodium Confirm 09/12/19 09:24 Protonix 40mg Tablet Administered 09/12/19 09:25 Dose 40 mg .ROUTE .STK-MED ONE Lab/Rad Data: Laboratory Result Diagrams 09/12/19 08:55 09/12/19 08:55 Laboratory Results 09/12/19 09/12/19 09/12/19 Range/Units 09:33 08:55 08:55 WBC 8.8 (4.0-10.5) K/mm3 RBC 4.82 (4.1-5.6) M/mm3 Hgb 14.1 (12.5-18.0) gm/dl Hct 43.3 (42-50) % MCV 89.8 (78-100) fl MCH 29.3 (26-32) pg MCHC 32.6 (32-36) g/dl RDW 13.7 (11.5-14.0) % Plt Count 276 (150-450) K/mm3 MPV 10.1 H (7.5-11.0) fl Gran % 87.1 H (36.0-66.0) % Eos # (Auto) 0.02 (0-0.5) Absolute Lymphs (auto) 0.86 L (1.0-4.6) Absolute Monos (auto) 0.25 (0.0-1.3) Lymphocytes % 9.7 L (24.0-44.0) % Monocytes % 2.8 (0.0-12.0) % Eosinophils % 0.2 (0.00-5.0) % Basophils % 0.2 (0.0-0.4) % Absolute Granulocytes 7.68 H (1.4-6.9) Basophils # 0.02 (0-0.4) Sodium 140 (137-145) mmol/L Potassium 4.2 (3.5-5.1) mmol/L Chloride 99 (98-107) mmol/L Carbon Dioxide 23 (22-30) mmol/L Anion Gap 21.6 H (5-15) MEQ/L BUN 16 (9-20) mg/dL Creatinine 0.93 (0.66-1.25) mg/dL Estimated GFR > 60.0 ML/MIN Glucose 337 H (74-106) mg/dL Calcium 10.6 H (8.4-10.2) mg/dL Total Bilirubin 0.70 (0.2-1.3) mg/dL Direct Bilirubin 0.5 H (0.0-0.4) mg/dL AST 23 (17-59) U/L ALT 19 (0-50) U/L Alkaline Phosphatase 104 (38-126) U/L Serum Total Protein 9.4 H (6.3-8.2) g/dL Albumin 5.3 H (3.5-5.0) g/dL Lipase 134 (23-300) U/L Urine Color YELLOW (YELLOW) Urine Appearance CLEAR (CLEAR) Urine pH 5.0 (5-6) Ur Specific Norris 1.015 (1.005-1.025) Urine Protein 300 (Negative) Urine Ketones MODERATE (NEGATIVE) Urine Blood 250 (0-5) David/ul Urine Nitrite NEGATIVE (NEGATIVE) Urine Bilirubin NEGATIVE (NEGATIVE) Urine Urobilinogen NORMAL (0-1) mg/dL Ur Leukocyte Esterase NEGATIVE (NEGATIVE) Urine WBC (Auto) 0-2 (0-5) /HPF Urine RBC (Auto) 6-10 (0-2) /HPF U Epithel Cells (Auto) RARE (FEW) /HPF Urine Bacteria (Auto) FEW (NEGATIVE) /HPF Urine Culture Reflexed YES (NO) Urine Glucose 1000 (NEGATIVE) mg/dL - Progress Progress: improved Progress Note: 09/12/19 09:17 nnontoxic in appearance. The patient appears to be hydrated and is physical exam and I suspect the patient's likely suffering from a viral enteritis at this time given that he has nausea/vomiting in addition no diarrhea and epigastric pain. Screening labs include CBC, BMP LFTs and lipase to be obtained. He'll receive IV fluids at this time in addition to antibiotics to treat his symptoms. I reassessed him after his labs resolved to see if he is feeling better and by mouth challenge and afterwards. If his labs are reassuring and his symptoms resolved and he is able to tolerate by mouth fluids he'll be discharged home with Bentyl in addition to ondansetron. 09/12/19 10:13 the patient had Is actually calculated to be 18 mmol per liter. 09/12/19 11:56 The patient was reassessed to find that he was sleeping and in no obvious distress. His abdomen was re-examined and with no tenderness. The patient reported he was feeling better and able to tolerate drinking a cup of water without nausea or vomiting. The patient appears to have a mild anion gap acidosis with elevated glucose likely secondary to his illness and inability to take his metformin due to vomiting. Ketones in his urine is likely reflective of this. His bicarbonate however is within normal limits. I do not think he is in DKA at this time and his acidosis is likely secondary to dehydration secondary to what is believed to be a viral gastroenteritis at this time. History is symptomatically in the emergency department with 2 L of IV fluids in addition to [place], Imodium and ondansetron with complete resolution of his symptoms. He was ultimately discharged home with instructions to follow with his primary care provider within the next 48 hours if needed and will be discharged with prescriptions for Bentyl, Imodium in addition to ondansetron for symptomatic relief/disease at home. He is return precautions for dehydration was given. 09/12/19 12:12 BGL now in the 200's according to the patient's nurse. Counseled pt/family regarding: lab results, diagnosis, need for follow-up - Departure Departure Disposition: Home, Extended Care Facility Clinical Impression: Gastroenteritis, Dehydration, Increased anion gap metabolic acidosis, Type 2 diabetes mellitus Condition: Stable Critical Care Time: No Referrals: CAMERON PONCE [Primary Care Provider] - Instructions: Vomiting -- Adult, Viral Gastroenteritis, Adult (DC) Additional Instructions: Please take your regular medicines as prescribed. Please call and schedule a follow-up appointment with your primary care provider to be evaluated in the 48 hrs if needed. Please drink plenty of fluids, specifically water to remain hydrated. Please return to the ED if you symptoms become worse. Prescriptions: Dicyclomine HCl 20 mg [Bentyl 20 mg] 0 mg PO Q6H PRN PRN #20 tablet PRN Reason: Pain Ondansetron ODT 4 MG [Zofran Odt 4 mg] 4 mg PO Q6H PRN PRN #10 tab.rapdis PRN Reason: Nausea/Vomiting Loperamide HCl 2 mg [Imodium 2 mg] 2 mg PO Q6-8HPRN PRN #10 capsule PRN Reason: Diarrhea
[2019-09-12 09:16] LABS: Absolute Neutrophil Ct (ANC) 7.68 (1.4-6.9); BASOPHIL % 0.2 % (0.0-0.4); Basophil (Absolute #) 0.02 (0-0.4); Eosinophil % 0.2 % (0.00-5.0); Eosinophil (Absolute #) 0.02 (0-0.5); Hematocrit 43.3 % (42-50); Hemoglobin 14.1 gm/dl (12.5-18.0); Lymphocyte (Absolute #) 0.86 (1.0-4.6); Lymphocytes % 9.7 % (24.0-44.0); Mean Cell Volume 89.8 fl (78-100); Mean Corpuscular Hemoglobin 29.3 pg (26-32); Mean Corpuscular Hgb Concent. 32.6 g/dl (32-36); Mean Platelet Volume 10.1 fl (7.5-11.0); Monocyte (Absolute #) 0.25 (0.0-1.3); Monocytes % 2.8 % (0.0-12.0); Neutrophil % 87.1 % (36.0-66.0); Platelet Count 276 K/mm3 (150-450); Red Blood Count 4.82 M/mm3 (4.1-5.6); Red Cell Distribution Width 13.7 % (11.5-14.0); White Blood Count 8.8 K/mm3 (4.0-10.5)
[2019-09-12] MEDS ORDERED: Sodium Chloride 0.9% 1000 ML 1,000 ML ONE ×2 (09:24→10:41)
[2019-09-12] MEDS ORDERED: Zofran 4 MG/2 ML VIAL ONE ×2 (09:24→10:29)
[2019-09-12] MEDS ORDERED: BENTYL 20 MG ONE (09:24)
[2019-09-12] MEDS ORDERED: Protonix 40MG Tablet ONE (09:24)
[2019-09-12 09:34] LABS: ALBUMIN 5.3 g/dL (3.5-5.0); ALKALINE PHOSPHATASE 104 U/L (38-126); ANION GAP 21.6 MEQ/L (5-15); BLOOD UREA NITROGEN 16 mg/dL (9-20); CHLORIDE 99 mmol/L (98-107); Calcium 10.6 mg/dL (8.4-10.2); Carbon Dioxide 23 mmol/L (22-30); Creatinine 1 0.93 mg/dL (0.66-1.25); Direct Bilirubin 0.5 mg/dL (0.0-0.4); Glucose 337 mg/dL (74-106); LIPASE 134 U/L (23-300); Potassium 4.2 mmol/L (3.5-5.1); SGOT/AST 23 U/L (17-59); SGPT/ALT 19 U/L (0-50); SODIUM 140 mmol/L (137-145); Total Protein 9.4 g/dL (6.3-8.2)
[2019-09-12] MEDS ORDERED: BENTYL 20 MG PO SCH (10:00)
[2019-09-12 10:15] LABS: Appearance CLEAR (CLEAR); Bacteria FEW /HPF (NEGATIVE); Bilirubin NEGATIVE (NEGATIVE); Blood 250 Ery/ul (0-5); Epithelial Cells RARE /HPF (FEW); Glucose 1000 mg/dL (NEGATIVE); Ketones MODERATE (NEGATIVE); Leukocyte Esterase NEGATIVE (NEGATIVE); Nitrite NEGATIVE (NEGATIVE); Protein,Urine Dip 300 (Negative); Specific Gravity 1.015 (1.005-1.025); Urobilinogen NORMAL mg/dL (0-1); WBC 0-2 /HPF (0-5)
[2019-09-12] MEDS ORDERED: IMODIUM 2 MG PO PRN (10:30)
[2019-09-12 12:21] VITALS: BP 159/89; PULSE 85; O2SAT 99
== END 2019-09-12 12:28 | disposition home or self-care (01) ==
LOC: ED 08:47
DX: K52.9 Noninfective gastroenteritis and colitis, unspecified (principal); E86.0 Dehydration; E87.2 Acidosis; E11.9 Type 2 diabetes mellitus without complications; R11.2 Nausea with vomiting, unspecified; N40.0 Benign prostatic hyperplasia without lower urinary tract symptoms; R19.7 Diarrhea, unspecified; I10 Essential (primary) hypertension; E78.00 Pure hypercholesterolemia, unspecified; I25.2 Old myocardial infarction
CPT/HCPCS: 36000; 36415; 80048; 80076; 81001; 82962; 83690; 85025; 87086; 93005; 96360; 96361; 96374; 96376; 99285; J2405; A9270-GY

== ENCOUNTER 2022-06-11 05:59 | Day surgery (SDC) | payer MEDICARE ==
[2022-06-11] MEDS ORDERED: DIPRIVAN 200 MG/20 ML IV ONE ×2 (06:19→08:14)
[2022-06-11] MEDS ORDERED: Xylocaine-Mpf 2% 5 Ml Vial ONE (06:22)
[2022-06-11] MEDS ORDERED: Lactated Ringers 1,000 ML IV SCH (06:30)
[2022-06-11 09:02] VITALS: BP 119/71; PULSE 60; O2SAT 98
--- NOTE | 2022-06-11 11:28 | OP ---
SURGERY DATE/TIME: 06/11/2022 0800 PREOPERATIVE DIAGNOSIS: Screening exam. POSTOPERATIVE DIAGNOSIS: Polyps in the ascending and hepatic flexure. PROCEDURE: Colonoscopy with hot snare polypectomy x2. SURGEON: Dr. González Virk. ANESTHESIA: MAC. Medications given by anesthesia department. HISTORY: The patient is a 61-year-old white male patient who presents now for colonoscopic evaluation. He does have a history of having colon polyps previously. The patient was appraised of the risks of the procedure including the risk of perforation, phlebitis, untoward reaction to medication, bleeding and missed lesions. The patient verbalized his understanding and desired to have the procedure performed. DESCRIPTION OF PROCEDURE: The patient was given the medications by the anesthesia department. He had continuous pulse oximetry, ECG monitoring, intermittent blood pressure monitoring during the examination. He was placed in the left lateral decubitus position. A digital rectal examination was performed and revealed normal anal sphincter tone, no masses and a large but smooth prostate. The flexible Olympus pediatric colonoscope was used to intubate the rectum. A view of the colon was developed sequentially to the cecum. Upon insertion and withdrawal, including a retroflex view in the rectum was noted an approximately 1 cm polyp in the ascending colon near the cecum. There was also noted approximately a 1 x 2 cm sessile lesion in the hepatic flexure. Both were removed using hot polypectomy snare and retrieved for pathologic evaluation. The scope was removed from the patient who tolerated the procedure well and was sent back to OP recovery in good condition. The prep was noted to be fair to poor. There were large amounts of liquid and particulate stool in the transverse colon precluding complete examination in this area. Otherwise we were able to examine the rest of the colon without difficulty.
== END 2022-06-11 09:10 | disposition home or self-care (01) ==
LOC: SDC 05:59
PROVIDERS: ATTEND Family Medicine
DX: Z12.11 Encounter for screening for malignant neoplasm of colon (principal); D12.2 Benign neoplasm of ascending colon; D12.3 Benign neoplasm of transverse colon; E11.9 Type 2 diabetes mellitus without complications
CPT/HCPCS: 82947; J2704

== ENCOUNTER 2022-10-22 09:38 | Emergency (ER) | payer MEDICARE ==
--- NOTE | 2022-10-22 09:48 | ERPHSYRPT ---
- History of Present Illness Time Seen by Provider: 10/22/22 09:48 Historian: patient, family Exam Limitations: no limitations Physician History: This is a 62-year-old white male patient of Dr. Virk who has multiple medical problems including hyperlipidemia, diabetes, arthritis, gastroesophageal reflux disease, irritable bowel syndrome, anxiety/panic disorder who presents to the emergency department with 1 week history of more often than not vomiting per patient statement. The patient's symptoms are worsening. Per patient's spouse, who provided additional history, the patient is also had intermittent sweats and chills although a temperature was never taken. Patient denies chest pain. He denies cough. He denies shortness of breath. He has not had any diarrhea. No other individuals he has been around has similar symptoms. Patient does smoke marijuana daily but has not smoked any marijuana today. Patient also states that he still has his gallbladder in place. Patient states he has generalized abdominal cramping. Timing/Duration: week(s), worse Abdominal Pain Onset Location: generalized abdomen Pain Radiation: no radiation Severity of Pain-Max: moderate Severity of Pain-Current: moderate Modifying Factors: Improves With: vomiting Associated Symptoms: diaphoresis, loss of appetite, nausea, vomiting, weakness Previous symptoms: same symptoms as today, no recent treatment Allergies/Adverse Reactions: Sulfa (Sulfonamide Antibiotics) Allergy (Mild, Verified 10/22/22 09:52) n/v hot cold Home Medications: Pregabalin [Lyrica] 150 mg PO TID 01/15/13 [History] ARIPiprazole [Aripiprazole] 5 mg PO DAILY 09/12/19 [History] Empagliflozin [Jardiance] 25 mg PO DAILY 09/12/19 [History] Metformin HCl 500 mg [Glucophage 500 MG] 1,000 mg PO BID 09/12/19 [History] Tamsulosin HCl 0.4 mg PO DAILY 09/12/19 [History] Hydroxychloroquine Sulfate 200 mg PO BID 05/30/22 [History] Insulin Detemir [Levemir] 20 unit SQ HS 05/30/22 [History] Rosuvastatin Calcium 20 mg PO DAILY 05/30/22 [History] Venlafaxine HCl [Venlafaxine HCl ER] 150 mg PO DAILY 05/30/22 [History] Hx Influenza Vaccination/Date Given: No Hx Pneumococcal Vaccination/Date Given: No Travel Risk - International Travel Have you traveled outside of the country in past 3 weeks: No - Coronavirus Screening Are you exhibiting any of the following symptoms?: Yes Symptoms: Vomiting/Diarrhea Close contact with a COVID-19 positive Pt in past 14-21 Days: No - Review of Systems Constitutional: Weakness Eyes: No Symptoms Ears, Nose, & Throat: No Symptoms Respiratory: No Symptoms Cardiac: No Symptoms Abdominal/Gastrointestinal: Abdominal Pain, Nausea, Vomiting, Appetite Changes Genitourinary Symptoms: No Symptoms Musculoskeletal: No Symptoms Skin: No Symptoms Neurological: No Symptoms Psychological: No Symptoms Endocrine: No Symptoms Hematologic/Lymphatic: No Symptoms Immunological/Allergic: No Symptoms All Other Systems: Reviewed and Negative - Past Medical History Pertinent Past Medical History: Yes Neurological History: No Pertinent History ENT History: No Pertinent History Cardiac History: High Cholesterol Respiratory History: No Pertinent History Endocrine Medical History: Diabetes Type II Musculoskeletal History: Arthritis, Fractures GI Medical History: GERD, Hemorrhoids, Irritable Bowel, Polyps History: No Pertinent History Psycho-Social History: Anxiety, Depression, Panic Disorder Male Reproductive Disorders: Other Other Medical History: R Knee Scope () - Past Surgical History Past Surgical History: Yes Neuro Surgical History: No Pertinent History Cardiac: No Pertinent History Respiratory: No Pertinent History Gastrointestinal: No Pertinent History, Other Genitourinary: No Pertinent History Musculoskeletal: Orthopedic Surgery Male Surgical History: No Pertinent History Other Surgical History: back, rt side carpal tunnel surgery, wart removal, colonoscopy with polyp removal. knee scope. - Social History Smoking Status: Former smoker How long have you smoked: vapor Exposure to second hand smoke: No Alcohol Use: None Drug Use: marijuana Patient Lives Alone: Yes Significant Family History: no pertinent family hx - Nursing Vital Signs Nursing Vital Signs: Initial Vital Signs Temperature 98.2 F 10/22/22 09:52 Pulse Rate 95 H 10/22/22 09:52 Respiratory Rate 18 10/22/22 09:52 Blood Pressure 179/83 10/22/22 09:52 O2 Sat by Pulse Oximetry 100 10/22/22 09:52 Pain Scale Pain Intensity 5 - Physical Exam General Appearance: mild distress, alert, anxiety Eye Exam: PERRL/EOMI, eyes nml inspection Ears, Nose, Throat Exam: normal ENT inspection, moist mucous membranes Neck Exam: normal inspection, non-tender, supple, full range of motion Respiratory Exam: normal breath sounds, lungs clear, airway intact, No chest tenderness, No respiratory distress Cardiovascular Exam: regular rate/rhythm, normal heart sounds, normal peripheral pulses Gastrointestinal/Abdomen Exam: soft, normal bowel sounds, tenderness (Mild diffuse to palpation), guarding (Mild diffuse to palpation), No rebound Rectal Exam: not done Back Exam: normal inspection, normal range of motion, No CVA tenderness, No vertebral tenderness Extremity Exam: normal inspection, normal range of motion, pelvis stable Neurologic Exam: alert, oriented x 3, cooperative, music mixer II-XII nml as tested, normal mood/affect, nml cerebellar function, nml station & gait, sensation nml Skin Exam: normal color, warm, diaphoresis Lymphatic Exam: No adenopathy SpO2 Interpretation: normal O2 Delivery: Room Air - Course Nursing assessment & vital signs reviewed: Yes Ordered Tests: Active Orders 24 hr Category Date Time Status IV Insertion STAT Care 10/22/22 10:19 Active ABDOMEN AND PELVIS W/0 CONTRAS [CT] Routine Exams 10/22/22 11:55 Completed AMYLASE Stat Lab 10/22/22 10:20 Completed CBC W DIFF Stat Lab 10/22/22 10:20 Completed CMP Stat Lab 10/22/22 10:20 Completed LIPASE Stat Lab 10/22/22 10:20 Completed Lactic Acid Stat Lab 10/22/22 10:20 Completed UA W/RFX UR CULTURE Stat Lab 10/22/22 13:09 Completed Urine Triage Profile Stat Lab 10/22/22 13:09 Completed Medication Summary Discontinued Medications Generic Name Dose Route Start Last Admin Trade Name Anayeli PRN Reason Stop Dose Admin Hydromorphone HCl 1 mg 10/22/22 10:30 10/22/22 10:53 Hydromorphone 1 Mg/1ml Inj 1 Mg/Ml Syringe IV 10/22/22 10:31 1 mg STAT ONE Administration Hydromorphone HCl Confirm 10/22/22 10:52 Hydromorphone 1 Mg/1ml Inj 1 Mg/Ml Syringe Administered 10/22/22 10:53 Dose 1 mg .ROUTE .STK-MED ONE Sodium Chloride 1,000 mls @ 999 mls/hr 10/22/22 10:19 10/22/22 11:26 Sodium Chloride 0.9% 1000 Ml IV 10/22/22 11:19 Infused .Q1H1M STA Infusion Sodium Chloride Confirm 10/22/22 10:24 Sodium Chloride 0.9% 1000 Ml Administered 10/22/22 10:25 Dose 1,000 mls @ ud .ROUTE .STK-MED ONE Sodium Chloride 1,000 mls @ 999 mls/hr 10/22/22 12:57 10/22/22 13:49 Sodium Chloride 0.9% 1000 Ml IV 10/22/22 13:57 999 mls/hr .Q1H1M STA Administration Sodium Chloride Confirm 10/22/22 13:48 Sodium Chloride 0.9% 1000 Ml Administered 10/22/22 13:49 Dose 1,000 mls @ ud .ROUTE .STK-MED ONE Levofloxacin 500 mg 10/22/22 13:52 10/22/22 14:14 Levofloxacin 500 Mg Tablet PO 10/22/22 13:53 500 mg STAT ONE Administration Levofloxacin Confirm 10/22/22 14:14 Levofloxacin 500 Mg Tablet Administered 10/22/22 14:15 Dose 500 mg .ROUTE .STK-MED ONE Ondansetron HCl 4 mg 10/22/22 10:19 10/22/22 10:25 Ondansetron Hcl 4 Mg/2 Ml Vial IV 10/22/22 10:20 4 mg STAT ONE Administration Ondansetron HCl Confirm 10/22/22 10:24 Ondansetron Hcl 4 Mg/2 Ml Vial Administered 10/22/22 10:25 Dose 4 mg .ROUTE .STK-MED ONE Lab/Rad Data: Laboratory Result Diagrams 10/22/22 10:20 10/22/22 10:20 Laboratory Results 10/22/22 10/22/22 10/22/22 Range/Units 13:09 13:09 10:43 WBC (4.0-10.5) x10^3/uL RBC (4.1-5.6) x10^6/uL Hgb (12.5-18.0) g/dL Hct (42-50) % MCV (78-100) fL MCH (26-32) pg MCHC (32-36) g/dL RDW (11.5-14.0) % Plt Count (150-450) x10^3/uL MPV (7.5-11.0) fL Gran % (36.0-66.0) % Immature Gran % (Auto) (0.00-0.4) % Nucleat RBC Rel Count (0.00-0.1) % Eos # (Auto) (0-0.5) x10^3/uL Immature Gran # (Auto) (0.00-0.03) x10^3u/L Absolute Lymphs (auto) (1.0-4.6) x10^3/uL Absolute Monos (auto) (0.0-1.3) x10^3/uL Absolute Nucleated RBC (0.00-0.01) x10^3u/L Lymphocytes % (24.0-44.0) % Monocytes % (0.0-12.0) % Eosinophils % (0.00-5.0) % Basophils % (0.0-0.4) % Absolute Granulocytes (1.4-6.9) x10^3/uL Basophils # (0-0.4) x10^3/uL Sodium (137-145) mmol/L Potassium (3.5-5.1) mmol/L Chloride (98-107) mmol/L Carbon Dioxide (22-30) mmol/L Anion Gap (5-15) MEQ/L BUN (9-20) mg/dL Creatinine (0.66-1.25) mg/dL Estimated GFR ML/MIN Glucose (74-106) mg/dL Lactic Acid (0.4-2.0) Calcium (8.4-10.2) mg/dL Total Bilirubin (0.2-1.3) mg/dL AST (17-59) U/L ALT (0-50) U/L Alkaline Phosphatase (38-126) U/L Serum Total Protein (6.3-8.2) g/dL Albumin (3.5-5.0) g/dL Amylase (30-110) U/L Lipase (23-300) U/L Urine Color Yellow (Yellow) Urine Appearance Clear (Clear) Urine pH 8.0 (4.6-8.0) Ur Specific [place] >=1.030 A (1.005-1.030) Urine Protein 100 A (Negative) Urine Glucose (UA) 500 A (Negative) mg/dL Urine Ketones Negative (Negative) Urine Blood Negative (Negative) Urine Nitrite Negative (Negative) Urine Bilirubin Negative (Negative) Urine Urobilinogen 0.2 (0.2) mg/dL Ur Leukocyte Esterase Negative (Negative) Urine Microscopic RBC NONE SEEN (0-5) /HPF Urine Microscopic WBC 0-2 (0-5) /HPF Ur Epithelial Cells None Seen (None Seen) /HPF Urine Bacteria Rare A (None Seen) /HPF Urine Culture Reflexed NO (NO) Urine Opiates Level NEGATIVE (NEGATIVE) Ur Methadone NEGATIVE (NEGATIVE) Urine Barbiturates NEGATIVE (NEGATIVE) Ur Phencyclidine (PCP) NEGATIVE (NEGATIVE) Urine Amphetamine NEGATIVE (NEGATIVE) U Benzodiazepine Level NEGATIVE (NEGATIVE) Urine Cocaine NEGATIVE (NEGATIVE) Urine Marijuana (THC) POSITIVE (NEGATIVE) Influenza Type A Ag NEGATIVE (NEGATIVE) Influenza Type B Ag NEGATIVE (NEGATIVE) RSV (PCR) NEGATIVE (Negative) SARS-CoV-2 (PCR) NEGATIVE (NEGATIVE) 10/22/22 10/22/22 10/22/22 Range/Units 10:20 10:20 10:20 WBC 7.9 (4.0-10.5) x10^3/uL RBC 4.81 (4.1-5.6) x10^6/uL Hgb 14.0 (12.5-18.0) g/dL Hct 43.0 (42-50) % MCV 89.4 (78-100) fL MCH 29.1 (26-32) pg MCHC 32.6 (32-36) g/dL RDW 12.9 (11.5-14.0) % Plt Count 282 (150-450) x10^3/uL MPV 9.8 (7.5-11.0) fL Gran % 85.7 H (36.0-66.0) % Immature Gran % (Auto) 0.3 (0.00-0.4) % Nucleat RBC Rel Count 0.0 (0.00-0.1) % Eos # (Auto) 0.04 (0-0.5) x10^3/uL Immature Gran # (Auto) 0.02 (0.00-0.03) x10^3u/L Absolute Lymphs (auto) 0.65 L (1.0-4.6) x10^3/uL Absolute Monos (auto) 0.36 (0.0-1.3) x10^3/uL Absolute Nucleated RBC 0.00 (0.00-0.01) x10^3u/L Lymphocytes % 8.2 L (24.0-44.0) % Monocytes % 4.5 (0.0-12.0) % Eosinophils % 0.5 (0.00-5.0) % Basophils % 0.8 (0.0-0.4) % Absolute Granulocytes 6.80 (1.4-6.9) x10^3/uL Basophils # 0.06 (0-0.4) x10^3/uL Sodium 137 (137-145) mmol/L Potassium 4.5 (3.5-5.1) mmol/L Chloride 99 (98-107) mmol/L Carbon Dioxide 28 (22-30) mmol/L Anion Gap 13.7 (5-15) MEQ/L BUN 17 (9-20) mg/dL Creatinine 1.13 (0.66-1.25) mg/dL Estimated GFR > 60.0 ML/MIN Glucose 145 H (74-106) mg/dL Lactic Acid 1.6 (0.4-2.0) Calcium 9.6 (8.4-10.2) mg/dL Total Bilirubin 0.40 (0.2-1.3) mg/dL AST 24 (17-59) U/L ALT 20 (0-50) U/L Alkaline Phosphatase 75 (38-126) U/L Serum Total Protein 8.5 H (6.3-8.2) g/dL Albumin 4.7 (3.5-5.0) g/dL Amylase 87 (30-110) U/L Lipase 107 (23-300) U/L Urine Color (Yellow) Urine Appearance (Clear) Urine pH (4.6-8.0) Ur Specific [place] (1.005-1.030) Urine Protein (Negative) Urine Glucose (UA) (Negative) mg/dL Urine Ketones (Negative) Urine Blood (Negative) Urine Nitrite (Negative) Urine Bilirubin (Negative) Urine Urobilinogen (0.2) mg/dL Ur Leukocyte Esterase (Negative) Urine Microscopic RBC (0-5) /HPF Urine Microscopic WBC (0-5) /HPF Ur Epithelial Cells (None Seen) /HPF Urine Bacteria (None Seen) /HPF Urine Culture Reflexed (NO) Urine Opiates Level (NEGATIVE) Ur Methadone (NEGATIVE) Urine Barbiturates (NEGATIVE) Ur Phencyclidine (PCP) (NEGATIVE) Urine Amphetamine (NEGATIVE) U Benzodiazepine Level (NEGATIVE) Urine Cocaine (NEGATIVE) Urine Marijuana (THC) (NEGATIVE) Influenza Type A Ag (NEGATIVE) Influenza Type B Ag (NEGATIVE) RSV (PCR) (Negative) SARS-CoV-2 (PCR) (NEGATIVE) - Progress Progress: improved, re-examined Progress Note: 10/22/22 12:58 CAT scan of the abdomen pelvis shows diffuse fecal stasis. There is thickened bladder wall consistent with cystitis. There is also evidence of enlarged prostate. 10/22/22 14:25 Level of medical complexity is moderate. This is based on the patient's complaint, history, history obtained from patient's spouse, physical findings and review of old records. Counseled pt/family regarding: lab results, diagnosis, need for follow-up, rad results Medical Desision Making - Independent Historian Additional History obtained from: Spouse - Discussion of managment Reviewed:: Test results (Reviewed with both the patient and patient's spouse), Need for additional workup (Thorough discussion with patient and patient's spouse regarding the need to follow-up with PCP to evaluate upper intestinal tract, gallbladder and urologist to evaluate his urinary bladder) Agreed on:: Treatment plan, need for follow-up - Diagnostic Testing Diagnostic Testing: Diagnostic tests were ordered,analyzed, and reviewed by me and used in my medical decision making for this patient. Radiologic studies (if ordered) were read by me initially then discussed with the radiologist . - Risk of complications The pt has a mod risk of morbidity or mortality based on: Need for prescription drug management, Need for minor surgical intervention in patient with know risk factors - Departure Clinical Impression: Cystitis, Recurrent vomiting Condition: Stable Critical Care Time: No Referrals: CAMERON VIRK [Primary Care Provider] - Follow up/PCP as directed Additional Instructions: Avoid fatty greasy spicy foods. Take your medication as prescribed. Follow-up with your primary care physician to make arrangements for upper endoscopy and for further evaluation of your gallbladder. Follow-up with urologist for further evaluation of urinary bladder. Prescriptions: Ondansetron ODT 4 MG [Zofran Odt 4 mg] 4 mg PO Q6H PRN PRN #10 tablet PRN Reason: Vomiting Ciprofloxacin [Cipro 500 MG] 500 mg PO BID #14 tablet
[2022-10-22] MEDS ORDERED: Zofran 4 MG/2 ML VIAL IV ONE (10:19)
[2022-10-22] MEDS ORDERED: Sodium Chloride 0.9% 1000 ML 1,000 ML IV STA ×2 (10:19→12:57)
[2022-10-22 10:24] LABS: BASOPHIL % 0.8 % (0.0-0.4); Basophil (Absolute #) 0.06 x10^3/uL (0-0.4); Eosinophil % 0.5 % (0.00-5.0); Eosinophil (Absolute #) 0.04 x10^3/uL (0-0.5); IMMATURE GRAN # 0.02 x10^3u/L (0.00-0.03); IMMATURE GRAN % 0.3 % (0.00-0.4); Lymphocyte (Absolute #) 0.65 x10^3/uL (1.0-4.6); Lymphocytes % 8.2 % (24.0-44.0); Mean Cell Volume 89.4 fL (78-100); Mean Corpuscular Hemoglobin 29.1 pg (26-32); Mean Corpuscular Hgb Concent. 32.6 g/dL (32-36); Mean Platelet Volume 9.8 fL (7.5-11.0); Monocyte (Absolute #) 0.36 x10^3/uL (0.0-1.3); Monocytes % 4.5 % (0.0-12.0); Neutrophil % 85.7 % (36.0-66.0); Platelet Count 282 x10^3/uL (150-450); Red Blood Count 4.81 x10^6/uL (4.1-5.6); Red Cell Distribution Width 12.9 % (11.5-14.0); White Blood Count 7.9 x10^3/uL (4.0-10.5)
[2022-10-22] MEDS ORDERED: Zofran 4 MG/2 ML VIAL ONE (10:24)
[2022-10-22] MEDS ORDERED: Sodium Chloride 0.9% 1000 ML 1,000 ML ONE ×2 (10:24→13:48)
[2022-10-22] MEDS ORDERED: Hydromorphone 1 mg/ml Injection IV ONE (10:30)
[2022-10-22] MEDS ORDERED: Hydromorphone 1 mg/ml Injection ONE (10:52)
[2022-10-22 10:53] LABS: ALBUMIN 4.7 g/dL (3.5-5.0); ALKALINE PHOSPHATASE 75 U/L (38-126); AMYLASE 87 U/L (30-110); ANION GAP 13.7 MEQ/L (5-15); BLOOD UREA NITROGEN 17 mg/dL (9-20); CHLORIDE 99 mmol/L (98-107); Calcium 9.6 mg/dL (8.4-10.2); Carbon Dioxide 28 mmol/L (22-30); Creatinine 1 1.13 mg/dL (0.66-1.25); EST GLOMERULAR FILTRATION RATE > 60.0 ML/MIN; Glucose 145 mg/dL (74-106); LIPASE 107 U/L (23-300); Potassium 4.5 mmol/L (3.5-5.1); SGOT/AST 24 U/L (17-59); SGPT/ALT 20 U/L (0-50); SODIUM 137 mmol/L (137-145); Total Protein 8.5 g/dL (6.3-8.2)
[2022-10-22 12:22] LABS: INFLUENZA A NEGATIVE (NEGATIVE); INFLUENZA B NEGATIVE (NEGATIVE); RESPIRATORY SYNCTIAL VIRUS NEGATIVE (Negative); SARS-CoV-2 Xpert Express NEGATIVE (NEGATIVE)
--- NOTE | 2022-10-22 12:36 | XRAY ---
Indication: Abdomen pain, nausea, and vomiting. Multiple contiguous axial images obtained through the abdomen and pelvis without contrast. Graft comparison: None Lung bases demonstrate minimal dependent atelectasis. Heart is not enlarged. Small hiatal hernia. Noncontrasted stomach and bowel loops appear nonobstructed with normal appendix. Moderate diffuse scattered colonic fecal debris throughout. Urinary bladder is moderately distended concerning for outlet obstruction versus neurogenic bladder. Also mild circumferential wall thickening concerning for cystitis. Enlarged prostate gland impresses on the base of the bladder. Incidental 1.5 cm right upper renal cortical cyst and 9 mm inferior right lobe hepatic cyst/hemangioma. Remaining liver, gallbladder, pancreas, spleen, adrenal glands, kidneys, ureters, and bladder are unremarkable for noncontrast exam. Mild scattered aortic calcifications without AAA. Osseous structures intact with mild L2-L3 degenerative disc disease. Impression: 1. Moderate diffuse fecal stasis. 2. Distended urinary bladder. Rule out outlet obstruction versus neurogenic bladder. Also circumferential wall thickening concerning for cystitis. 3. Chronic findings including small hiatal hernia, enlarged prostate gland, small right renal cyst, tiny hepatic cyst/hemangioma, and L2-L3 degenerative changes.
[2022-10-22 13:35] LABS: Amphetamine,Urine NEGATIVE (NEGATIVE); Barbiturate,Urine NEGATIVE (NEGATIVE); Benzodiazepine,Urine NEGATIVE (NEGATIVE); Cocaine,Urine NEGATIVE (NEGATIVE); Methadone,Urine NEGATIVE (NEGATIVE); Opiate,Urine NEGATIVE (NEGATIVE); PCP,Urine NEGATIVE (NEGATIVE); THC,Urine POSITIVE (NEGATIVE)
[2022-10-22 13:45] LABS: Appearance Clear (Clear); Bilirubin Negative (Negative); Blood Negative (Negative); Glucose, Urine 500 mg/dL (Negative); Ketones Negative (Negative); Leukocyte Esterase Negative (Negative); Nitrite Negative (Negative); Protein,Urine Dip 100 (Negative); Specific Gravity >=1.030 (1.005-1.030); Urobilinogen 0.2 mg/dL (0.2)
[2022-10-22 13:47] LABS: ADD URINE CULTURE? NO (NO); Bacteria Rare /HPF (None Seen); Epithelial Cells None Seen /HPF (None Seen); RBC NONE SEEN /HPF (0-5); WBC 0-2 /HPF (0-5)
[2022-10-22] MEDS ORDERED: Levofloxacin 500 MG Tablet PO ONE (13:52)
[2022-10-22] MEDS ORDERED: Levofloxacin 500 MG Tablet ONE (14:14)
[2022-10-22 14:36] VITALS: BP 137/78; PULSE 84; O2SAT 94
== END 2022-10-22 14:41 | disposition home or self-care (01) ==
LOC: ED 09:38
DX: N30.90 Cystitis, unspecified without hematuria (principal); R11.2 Nausea with vomiting, unspecified; R10.84 Generalized abdominal pain; E78.5 Hyperlipidemia, unspecified; E11.9 Type 2 diabetes mellitus without complications; Z79.84 Long term (current) use of oral hypoglycemic drugs; Z79.4 Long term (current) use of insulin; Z79.899 Other long term (current) drug therapy; Z20.828 Contact with and (suspected) exposure to other viral communicable diseases
CPT/HCPCS: 0241U; 36000; 36415; 74176; 80053; 80307; 81001; 82150; 83605; 83690; 85025; 96374; 96375; 99284; J1170; J2405; A9270-GY

== ENCOUNTER 2022-10-24 08:06 | Observation (INO) | payer MEDICARE ==
[2022-10-24] MEDS ORDERED: Zofran 4 MG/2 ML VIAL IV ONE (08:16)
[2022-10-24] MEDS ORDERED: Sodium Chloride 0.9% 1000 ML 1,000 ML IV STA (08:16)
[2022-10-24] MEDS ORDERED: PROTONIX 40 MG IV IV ONE ×2 (08:16→08:39)
--- NOTE | 2022-10-24 08:16 | ERPHSYRPT ---
- History of Present Illness Time Seen by Provider: 10/24/22 08:16 Historian: patient, family Exam Limitations: no limitations Physician History: This is a 62-year-old white male patient of Dr. Virk who has had abdominal pain and vomiting intermittently over the last few weeks. He was seen in our emergency department on 10/22/2022. At that time he was found to have a cystitis present. On CAT scan he had diffuse fecal stasis, a distended urinary bladder with circumferential wall thickening, a small hiatal hernia and an enlarged prostate. His CBC, CMP, amylase, lipase and lactic acid were all within the normal limits. At the time of his discharge on 10/22/2022, patient states he is feeling much better. He was discharged to home. He followed up with his po diatrist on 10/23/2022. However his vomiting recurred. At the time of his discharge on 10/22/2022 instructions were given to him to follow-up with the urologist, his primary care physician to evaluate his gallbladder and to see a manager baby if indicated to perform an upper endoscopy. Additional history was obtained from the patient's spouse. Patient has a history of hyperlipidemia, diabetes, arthritis, gastroesophageal reflux disease, irritable bowel syndrome, anxiety/panic disorder. Patient is a daily smoker of marijuana. He has not had any abdominal surgeries. Quality: sharpness Abdominal Pain Onset Location: RUQ, epigastric Pain Radiation: no radiation Severity of Pain-Max: moderate Severity of Pain-Current: mild (To moderate) Modifying Factors: Improves With: vomiting Associated Symptoms: loss of appetite, nausea, vomiting Previous symptoms: same symptoms as today, recently seen, recently treated Allergies/Adverse Reactions: Sulfa (Sulfonamide Antibiotics) Allergy (Mild, Verified 10/24/22 08:20) n/v hot cold Home Medications: Pregabalin [Lyrica] 150 mg PO TID 01/15/13 [History] ARIPiprazole [Aripiprazole] 5 mg PO DAILY 09/12/19 [History] Empagliflozin [Jardiance] 25 mg PO DAILY 09/12/19 [History] Metformin HCl 500 mg [Glucophage 500 MG] 1,000 mg PO BID 09/12/19 [History] Tamsulosin HCl 0.4 mg PO DAILY 09/12/19 [History] Hydroxychloroquine Sulfate 200 mg PO BID 05/30/22 [History] Insulin Detemir [Levemir] 20 unit SQ HS 05/30/22 [History] Rosuvastatin Calcium 20 mg PO DAILY 05/30/22 [History] Venlafaxine HCl [Venlafaxine HCl ER] 150 mg PO DAILY 05/30/22 [History] Hx Influenza Vaccination/Date Given: No Hx Pneumococcal Vaccination/Date Given: No Travel Risk - International Travel Have you traveled outside of the country in past 3 weeks: No - Coronavirus Screening Are you exhibiting any of the following symptoms?: No Close contact with a COVID-19 positive Pt in past 14-21 Days: No - Vaccine Status Have you recieved a Covid-19 vaccination: Yes Parent Educator: Moderna - Vaccination Dates Date of 2cond Vaccination (if applicable): na - Review of Systems Constitutional: No Symptoms Eyes: No Symptoms Ears, Nose, & Throat: No Symptoms Respiratory: No Symptoms Cardiac: No Symptoms Abdominal/Gastrointestinal: Abdominal Pain, Nausea, Vomiting Genitourinary Symptoms: No Symptoms Musculoskeletal: No Symptoms Skin: No Symptoms Neurological: No Symptoms Psychological: No Symptoms Endocrine: No Symptoms Hematologic/Lymphatic: No Symptoms Immunological/Allergic: No Symptoms All Other Systems: Reviewed and Negative - Past Medical History Pertinent Past Medical History: Yes Neurological History: No Pertinent History ENT History: No Pertinent History Cardiac History: High Cholesterol Respiratory History: No Pertinent History Endocrine Medical History: Diabetes Type II Musculoskeletal History: Arthritis, Fractures GI Medical History: GERD, Hemorrhoids, Irritable Bowel, Polyps History: No Pertinent History Psycho-Social History: Anxiety, Depression, Panic Disorder Male Reproductive Disorders: Other Other Medical History: R Knee Scope () - Past Surgical History Past Surgical History: Yes Neuro Surgical History: No Pertinent History Cardiac: No Pertinent History Respiratory: No Pertinent History Gastrointestinal: No Pertinent History, Other Genitourinary: No Pertinent History Musculoskeletal: Orthopedic Surgery Male Surgical History: No Pertinent History Other Surgical History: back, rt side carpal tunnel surgery, wart removal, colonoscopy with polyp removal. knee scope. - Social History Smoking Status: Former smoker How long have you smoked: vapor Exposure to second hand smoke: No Alcohol Use: None Drug Use: marijuana Patient Lives Alone: Yes Significant Family History: no pertinent family hx - Nursing Vital Signs Nursing Vital Signs: Initial Vital Signs Temperature 98.6 F 10/24/22 08:21 Pulse Rate 101 H 02/16/23 08:21 Respiratory Rate 18 10/24/22 08:21 Blood Pressure 182/90 10/24/22 08:21 O2 Sat by Pulse Oximetry 95 10/24/22 08:21 Pain Scale Pain Intensity 10 - Physical Exam General Appearance: mild distress, alert, anxiety Eye Exam: PERRL/EOMI, eyes nml inspection Ears, Nose, Throat Exam: normal ENT inspection, moist mucous membranes Neck Exam: normal inspection, non-tender, supple, full range of motion Respiratory Exam: normal breath sounds, lungs clear, airway intact, No chest tenderness, No respiratory distress Cardiovascular Exam: regular rate/rhythm, normal heart sounds, normal peripheral pulses Gastrointestinal/Abdomen Exam: soft, normal bowel sounds, tenderness (Upper abdomen) Rectal Exam: not done Back Exam: normal inspection, normal range of motion, No CVA tenderness, No vertebral tenderness Extremity Exam: normal inspection, normal range of motion, pelvis stable Neurologic Exam: alert, oriented x 3, cooperative, information assoc II-XII nml as tested, normal mood/affect, nml cerebellar function, nml station & gait, sensation nml Skin Exam: normal color, warm, dry Lymphatic Exam: No adenopathy SpO2 Interpretation: normal O2 Delivery: Room Air - Course Nursing assessment & vital signs reviewed: Yes Ordered Tests: Active Orders 24 hr Category Date Time Status IV Insertion STAT Care 10/24/22 08:16 Active GALLBLADDER [US] Stat Exams 10/24/22 09:11 Completed AMYLASE Stat Lab 10/24/22 08:44 Completed CBC W DIFF Stat Lab 10/24/22 08:44 Completed CMP Stat Lab 10/24/22 08:44 Completed LIPASE Stat Lab 10/24/22 08:44 Completed Lactic Acid Stat Lab 10/24/22 08:16 Completed UA W/RFX UR CULTURE Stat Lab 10/24/22 10:04 Completed Transfer Order Routine Transfer 10/24/22 Ordered Medication Summary Discontinued Medications Generic Name Dose Route Start Last Admin Trade Name Freq PRN Reason Stop Dose Admin Hydromorphone HCl 1 mg 10/24/22 10:08 10/24/22 10:12 Hydromorphone 1 Mg/1ml Inj 1 Mg/Ml Syringe IV 10/24/22 10:09 1 mg STAT ONE Administration Hydromorphone HCl Confirm 10/24/22 10:11 Hydromorphone 1 Mg/1ml Inj 1 Mg/Ml Syringe Administered 10/24/22 10:12 Dose 1 mg .ROUTE .STK-MED ONE Sodium Chloride 1,000 mls @ 999 mls/hr 10/24/22 08:16 10/24/22 09:45 Sodium Chloride 0.9% 1000 Ml IV 10/24/22 09:16 Infused .Q1H1M STA Infusion Sodium Chloride Confirm 10/24/22 08:39 Sodium Chloride 0.9% 1000 Ml Administered 10/24/22 08:40 Dose 1,000 mls @ ud .ROUTE .STK-MED ONE Ondansetron HCl 4 mg 10/24/22 08:16 10/24/22 08:40 Ondansetron Hcl 4 Mg/2 Ml Vial IV 10/24/22 08:17 4 mg STAT ONE Administration Ondansetron HCl Confirm 10/24/22 08:39 Ondansetron Hcl 4 Mg/2 Ml Vial Administered 10/24/22 08:40 Dose 4 mg .ROUTE .STK-MED ONE Pantoprazole Sodium 40 mg 10/24/22 08:16 10/24/22 08:40 Pantoprazole 40 Mg Vial IV 10/24/22 08:17 40 mg STAT ONE Administration Pantoprazole Sodium Confirm 10/24/22 08:39 Pantoprazole 40 Mg Vial Administered 10/24/22 08:40 Dose 40 mg IV .STK-MED ONE Lab/Rad Data: Laboratory Result Diagrams 10/24/22 08:44 10/24/22 08:44 Laboratory Results 10/24/22 10/24/22 10/24/22 Range/Units 10:04 08:44 08:44 WBC (4.0-10.5) x10^3/uL RBC (4.1-5.6) x10^6/uL Hgb (12.5-18.0) g/dL Hct (42-50) % MCV (78-100) fL MCH (26-32) pg MCHC (32-36) g/dL RDW (11.5-14.0) % Plt Count (150-450) x10^3/uL MPV (7.5-11.0) fL Gran % (36.0-66.0) % Immature Gran % (Auto) (0.00-0.4) % Nucleat RBC Rel Count (0.00-0.1) % Eos # (Auto) (0-0.5) x10^3/uL Immature Gran # (Auto) (0.00-0.03) x10^3u/L Absolute Lymphs (auto) (1.0-4.6) x10^3/uL Absolute Monos (auto) (0.0-1.3) x10^3/uL Absolute Nucleated RBC (0.00-0.01) x10^3u/L Lymphocytes % (24.0-44.0) % Monocytes % (0.0-12.0) % Eosinophils % (0.00-5.0) % Basophils % (0.0-0.4) % Absolute Granulocytes (1.4-6.9) x10^3/uL Basophils # (0-0.4) x10^3/uL Sodium 138 (137-145) mmol/L Potassium 4.1 (3.5-5.1) mmol/L Chloride 100 (98-107) mmol/L Carbon Dioxide 29 (22-30) mmol/L Anion Gap 13.8 (5-15) MEQ/L BUN 15 (9-20) mg/dL Creatinine 1.09 (0.66-1.25) mg/dL Estimated GFR > 60.0 ML/MIN Glucose 169 H (74-106) mg/dL Lactic Acid (0.4-2.0) Calcium 9.4 (8.4-10.2) mg/dL Total Bilirubin 0.40 (0.2-1.3) mg/dL AST 25 (17-59) U/L ALT 20 (0-50) U/L Alkaline Phosphatase 75 (38-126) U/L Serum Total Protein 8.7 H (6.3-8.2) g/dL Albumin 4.8 (3.5-5.0) g/dL Amylase 102 (30-110) U/L Lipase 266 (23-300) U/L Urine Color Yellow (Yellow) Urine Appearance Clear (Clear) Urine pH 7.5 (4.6-8.0) Ur Specific [place] 1.025 (1.005-1.030) Urine Protein 30 (Negative) Urine Glucose (UA) >=1000 A (Negative) mg/dL Urine Ketones Negative (Negative) Urine Blood Negative (Negative) Urine Nitrite Negative (Negative) Urine Bilirubin Negative (Negative) Urine Urobilinogen 0.2 (0.2) mg/dL Ur Leukocyte Esterase Negative (Negative) U Hyaline Cast (Auto) NONE SEEN (0-2) /LPF Urine Microscopic RBC 0-2 (0-5) /HPF Urine Microscopic WBC 0-2 (0-5) /HPF Ur Epithelial Cells None Seen (None Seen) /HPF Urine Bacteria None Seen (None Seen) /HPF Urine Culture Reflexed NO (NO) Influenza Type A Ag NEGATIVE (NEGATIVE) Influenza Type B Ag NEGATIVE (NEGATIVE) RSV (PCR) NEGATIVE (Negative) SARS-CoV-2 (PCR) NEGATIVE (NEGATIVE) 10/24/22 10/24/22 Range/Units 08:44 08:16 WBC 7.0 (4.0-10.5) x10^3/uL RBC 5.13 (4.1-5.6) x10^6/uL Hgb 14.9 (12.5-18.0) g/dL Hct 45.6 (42-50) % MCV 88.9 (78-100) fL MCH 29.0 (26-32) pg MCHC 32.7 (32-36) g/dL RDW 12.8 (11.5-14.0) % Plt Count 321 (150-450) x10^3/uL MPV 9.4 (7.5-11.0) fL Gran % 81.2 H (36.0-66.0) % Immature Gran % (Auto) 0.6 H (0.00-0.4) % Nucleat RBC Rel Count 0.0 (0.00-0.1) % Eos # (Auto) 0.09 (0-0.5) x10^3/uL Immature Gran # (Auto) 0.04 H (0.00-0.03) x10^3u/L Absolute Lymphs (auto) 0.76 L (1.0-4.6) x10^3/uL Absolute Monos (auto) 0.35 (0.0-1.3) x10^3/uL Absolute Nucleated RBC 0.00 (0.00-0.01) x10^3u/L Lymphocytes % 10.8 L (24.0-44.0) % Monocytes % 5.0 (0.0-12.0) % Eosinophils % 1.3 (0.00-5.0) % Basophils % 1.1 (0.0-0.4) % Absolute Granulocytes 5.71 (1.4-6.9) x10^3/uL Basophils # 0.08 (0-0.4) x10^3/uL Sodium (137-145) mmol/L Potassium (3.5-5.1) mmol/L Chloride (98-107) mmol/L Carbon Dioxide (22-30) mmol/L Anion Gap (5-15) MEQ/L BUN (9-20) mg/dL Creatinine (0.66-1.25) mg/dL Estimated GFR ML/MIN Glucose (74-106) mg/dL Lactic Acid 1.8 (0.4-2.0) Calcium (8.4-10.2) mg/dL Total Bilirubin (0.2-1.3) mg/dL AST (17-59) U/L ALT (0-50) U/L Alkaline Phosphatase (38-126) U/L Serum Total Protein (6.3-8.2) g/dL Albumin (3.5-5.0) g/dL Amylase (30-110) U/L Lipase (23-300) U/L Urine Color (Yellow) Urine Appearance (Clear) Urine pH (4.6-8.0) Ur Specific [place] (1.005-1.030) Urine Protein (Negative) Urine Glucose (UA) (Negative) mg/dL Urine Ketones (Negative) Urine Blood (Negative) Urine Nitrite (Negative) Urine Bilirubin (Negative) Urine Urobilinogen (0.2) mg/dL Ur Leukocyte Esterase (Negative) U Hyaline Cast (Auto) (0-2) /LPF Urine Microscopic RBC (0-5) /HPF Urine Microscopic WBC (0-5) /HPF Ur Epithelial Cells (None Seen) /HPF Urine Bacteria (None Seen) /HPF Urine Culture Reflexed (NO) Influenza Type A Ag (NEGATIVE) Influenza Type B Ag (NEGATIVE) RSV (PCR) (Negative) SARS-CoV-2 (PCR) (NEGATIVE) - Progress Progress: improved, pain not gone completely Progress Note: 10/24/22 11:19 Gallbladder ultrasound impression is a gallbladder polyp that is tiny. There is no cholelithiasis or cholecystitis present. Pancreas is not visualized. Discussed with DrPamela: [place] Bernabe, Other (Delta Clarke currently in surgery. We provided him with consultation request and information through his office at 11:30 AM) Counseled pt/family regarding: lab results, diagnosis, need for follow-up, rad results Medical Desision Making - Independent Historian Additional History obtained from: Spouse - Discussion of managment Care discussed with:: specialist (Delta Clarkegeneral surgeon on-call) Reviewed:: Test results, Need for additional workup Agreed on:: Treatment plan, place in obs Will see patient: in hospital - Diagnostic Testing Diagnostic Testing: Diagnostic tests were ordered,analyzed, and reviewed by me and used in my medical decision making for this patient. Radiologic studies (if ordered) were read by me initially then discussed with the radiologist . - Risk of complications Low Risk: Low risk of morbidity from additional dx testing or treatment - Departure Departure Disposition: Observation Clinical Impression: Intractable vomiting, Right upper quadrant abdominal pain Condition: Stable Critical Care Time: No Referrals: CAMERON VIRK [Primary Care Provider] - Follow up/PCP as directed
[2022-10-24] MEDS ORDERED: Zofran 4 MG/2 ML VIAL ONE (08:39)
[2022-10-24] MEDS ORDERED: Sodium Chloride 0.9% 1000 ML 1,000 ML ONE (08:39)
[2022-10-24 08:45] LABS: Absolute Neutrophil Ct (ANC) 5.71 x10^3/uL (1.4-6.9); BASOPHIL % 1.1 % (0.0-0.4); Basophil (Absolute #) 0.08 x10^3/uL (0-0.4); Eosinophil % 1.3 % (0.00-5.0); Eosinophil (Absolute #) 0.09 x10^3/uL (0-0.5); Hematocrit 45.6 % (42-50); Hemoglobin 14.9 g/dL (12.5-18.0); IMMATURE GRAN # 0.04 x10^3u/L (0.00-0.03); IMMATURE GRAN % 0.6 % (0.00-0.4); Lymphocyte (Absolute #) 0.76 x10^3/uL (1.0-4.6); Lymphocytes % 10.8 % (24.0-44.0); Mean Cell Volume 88.9 fL (78-100); Mean Corpuscular Hgb Concent. 32.7 g/dL (32-36); Mean Platelet Volume 9.4 fL (7.5-11.0); Monocyte (Absolute #) 0.35 x10^3/uL (0.0-1.3); Neutrophil % 81.2 % (36.0-66.0); Platelet Count 321 x10^3/uL (150-450); Red Blood Count 5.13 x10^6/uL (4.1-5.6); Red Cell Distribution Width 12.8 % (11.5-14.0)
[2022-10-24 08:58] LABS: ALBUMIN 4.8 g/dL (3.5-5.0); ALKALINE PHOSPHATASE 75 U/L (38-126); AMYLASE 102 U/L (30-110); ANION GAP 13.8 MEQ/L (5-15); BLOOD UREA NITROGEN 15 mg/dL (9-20); CHLORIDE 100 mmol/L (98-107); Calcium 9.4 mg/dL (8.4-10.2); Carbon Dioxide 29 mmol/L (22-30); Creatinine 1 1.09 mg/dL (0.66-1.25); EST GLOMERULAR FILTRATION RATE > 60.0 ML/MIN; Glucose 169 mg/dL (74-106); LIPASE 266 U/L (23-300); Potassium 4.1 mmol/L (3.5-5.1); SGOT/AST 25 U/L (17-59); SGPT/ALT 20 U/L (0-50); SODIUM 138 mmol/L (137-145); Total Protein 8.7 g/dL (6.3-8.2)
[2022-10-24 09:19] LABS: INFLUENZA A NEGATIVE (NEGATIVE); INFLUENZA B NEGATIVE (NEGATIVE); RESPIRATORY SYNCTIAL VIRUS NEGATIVE (Negative); SARS-CoV-2 Xpert Express NEGATIVE (NEGATIVE)
[2022-10-24] MEDS ORDERED: Hydromorphone 1 mg/ml Injection IV ONE (10:08)
[2022-10-24] MEDS ORDERED: Hydromorphone 1 mg/ml Injection ONE (10:11)
[2022-10-24 10:27] LABS: Appearance Clear (Clear); Bacteria None Seen /HPF (None Seen); Bilirubin Negative (Negative); Blood Negative (Negative); Epithelial Cells None Seen /HPF (None Seen); Glucose, Urine >=1000 mg/dL (Negative); Hyaline Casts NONE SEEN /LPF (0-2); Ketones Negative (Negative); Leukocyte Esterase Negative (Negative); Nitrite Negative (Negative); Ph 7.5 (4.6-8.0); Protein,Urine Dip 30 (Negative); RBC 0-2 /HPF (0-5); Specific Gravity 1.025 (1.005-1.030); Urobilinogen 0.2 mg/dL (0.2); WBC 0-2 /HPF (0-5)
[2022-10-24 10:30] LABS: ADD URINE CULTURE? NO (NO)
--- NOTE | 2022-10-24 10:55 | XRAY ---
Indication: Pain, nausea, and vomiting. Two-dimensional gallbladder sonogram performed. Comparison: October 26, 2012 Pancreas not well-seen due to overlying bowel gas. Gallbladder normally distended with tiny 3 mm polyp. No gallstones, wall thickening, or pericholecystic fluid. Common bile duct measures 4.7 mm. No intrahepatic biliary distention. Visualized liver sonographically unremarkable. No ascites. Right kidney measures 11.1 cm in length with 1.6 cm exophytic cyst. Impression: 1. Nonvisualization pancreas. 2. Tiny gallbladder polyp. Negative for cholelithiasis/cholecystitis. 3. Incidental right renal cyst.
[2022-10-24] MEDS ORDERED: Zofran 4 MG/2 ML VIAL IV PRN (13:19)
[2022-10-24] MEDS ORDERED: TYLENOL 325 MG PO PRN (13:19)
[2022-10-24] MEDS ORDERED: HUMULIN R SQ PRN (13:19)
[2022-10-24] MEDS ORDERED: Hydromorphone 1 mg/ml Injection IV PRN (13:19)
[2022-10-24] MEDS: Sodium Chloride 0.9% 1000 ML 1,000 ML IV SCH ×2 (13:58→20:27)
[2022-10-24] MEDS: PROTONIX 40 MG IV IV SCH (18:25)
[2022-10-24] MEDS: Flomax 0.4 MG PO SCH (18:40)
[2022-10-24] MEDS: LYRICA 150MG PO SCH ×2 (18:40→20:26)
[2022-10-24] MEDS: Tricor 145 MG PO SCH (18:41)
[2022-10-24] MEDS: Effexor XR 75 MG PO SCH (18:41)
[2022-10-24] MEDS: Glucophage 500 MG PO SCH (18:42)
[2022-10-24] MEDS: Abilify 10 MG PO SCH (18:42)
[2022-10-24] MEDS: Glucotrol 5 MG PO SCH (18:42)
[2022-10-24] MEDS: JARDIANCE PO SCH (18:43)
[2022-10-24] MEDS: Lantus Insulin SQ SCH ×2 (20:25→22:35)
[2022-10-24] MEDS: NON-FORMULARY ITEM PO SCH (20:26)
[2022-10-24] MEDS: OMNICEF 300 MG PO SCH (20:28)
[2022-10-24] MEDS ORDERED: NON-FORMULARY ITEM (Insulin Detemir [Levemir] 100 UNIT/ML Vial) SQ SCH (22:00)
[2022-10-24] MEDS ORDERED: NON-FORMULARY ITEM (Pregabalin [Lyrica] 300 MG Capsule) PO SCH (22:00)
[2022-10-24] MEDS ORDERED: NON-FORMULARY ITEM (Hydroxychloroquine Sulfate [Hydroxychloroquine Sulfate] 200 MG Tablet) PO SCH (22:00)
[2022-10-24] MEDS ORDERED: NON-FORMULARY ITEM (Rosuvastatin Calcium [Rosuvastatin Calcium] 20 MG Tablet) PO SCH (22:00)
[2022-10-24] MEDS ORDERED: ZOCOR 20MG PO SCH (22:00)
[2022-10-24] MEDS ORDERED: NON-FORMULARY ITEM (Cefdinir [Cefdinir] 300 MG Capsule) PO SCH (22:00)
[2022-10-25 05:24] LABS: Absolute Neutrophil Ct (ANC) 3.03 x10^3/uL (1.4-6.9); BASOPHIL % 1.2 % (0.0-0.4); Basophil (Absolute #) 0.06 x10^3/uL (0-0.4); Eosinophil % 4.4 % (0.00-5.0); Eosinophil (Absolute #) 0.23 x10^3/uL (0-0.5); Hematocrit 38.2 % (42-50); IMMATURE GRAN # 0.01 x10^3u/L (0.00-0.03); IMMATURE GRAN % 0.2 % (0.00-0.4); Lymphocyte (Absolute #) 1.48 x10^3/uL (1.0-4.6); Lymphocytes % 28.4 % (24.0-44.0); Mean Cell Volume 91.2 fL (78-100); Mean Corpuscular Hemoglobin 28.6 pg (26-32); Mean Corpuscular Hgb Concent. 31.4 g/dL (32-36); Mean Platelet Volume 9.2 fL (7.5-11.0); Monocytes % 7.7 % (0.0-12.0); Neutrophil % 58.1 % (36.0-66.0); Platelet Count 240 x10^3/uL (150-450); Red Blood Count 4.19 x10^6/uL (4.1-5.6); Red Cell Distribution Width 13.2 % (11.5-14.0); White Blood Count 5.2 x10^3/uL (4.0-10.5)
[2022-10-25 06:04] LABS: ALBUMIN 3.6 g/dL (3.5-5.0); ALKALINE PHOSPHATASE 49 U/L (38-126); BLOOD UREA NITROGEN 14 mg/dL (9-20); CHLORIDE 109 mmol/L (98-107); Calcium 8.2 mg/dL (8.4-10.2); Carbon Dioxide 25 mmol/L (22-30); Creatinine 1 0.95 mg/dL (0.66-1.25); EST GLOMERULAR FILTRATION RATE > 60.0 ML/MIN; Glucose 101 mg/dL (74-106); SGOT/AST 23 U/L (17-59); SGPT/ALT 17 U/L (0-50); SODIUM 140 mmol/L (137-145); Total Protein 6.4 g/dL (6.3-8.2)
[2022-10-25 06:06] LABS: Potassium 3.9 mmol/L (3.5-5.1)
[2022-10-25 06:15] LABS: ANION GAP 9.9 MEQ/L (5-15)
[2022-10-25] MEDS: Glucotrol 5 MG PO SCH (07:38)
[2022-10-25] MEDS: Glucophage 500 MG PO SCH (07:38)
[2022-10-25] MEDS: Abilify 10 MG PO SCH (10:00)
[2022-10-25] MEDS ORDERED: NON-FORMULARY ITEM (Aripiprazole [Aripiprazole] 5 MG Tablet) PO SCH (10:00)
[2022-10-25] MEDS ORDERED: NON-FORMULARY ITEM (Fenofibrate Nanocrystallized [Fenofibrate] 48 MG Tablet) PO SCH (10:00)
[2022-10-25] MEDS ORDERED: NON-FORMULARY ITEM (Venlafaxine Hcl [Venlafaxine Hcl Er] 150 MG Tab.Er.24) PO SCH (10:00)
[2022-10-25] MEDS: LYRICA 150MG PO SCH ×2 (10:01→16:06)
[2022-10-25] MEDS: Effexor XR 75 MG PO SCH (10:01)
[2022-10-25] MEDS: Tricor 145 MG PO SCH (10:01)
[2022-10-25] MEDS: OMNICEF 300 MG PO SCH (10:02)
[2022-10-25] MEDS: Flomax 0.4 MG PO SCH (10:02)
[2022-10-25] MEDS: PROTONIX 40 MG IV IV SCH (10:02)
[2022-10-25] MEDS: JARDIANCE PO SCH (10:03)
[2022-10-25] MEDS: NON-FORMULARY ITEM PO SCH (10:07)
[2022-10-25] MEDS: Sodium Chloride 0.9% 1000 ML 1,000 ML IV SCH (10:12)
--- NOTE | 2022-10-25 16:09 | XRAY ---
Indication: Abdomen pain. Gallbladder polyp on recent sonogram. Comparison: None Patient received 5.0 mCi technetium 99 Choletec. Immediate anterior planar imaging was performed for 60 minutes. Normal hepatic activity on the first image. Normal biliary activity within 10 minutes. Normal gallbladder activity within 20 minutes. Normal biliary to bowel activity within 60 minutes. Patient then received 1.8 g of IV CCK slowly. Ejection fraction calculated 53%, normal. Impression: Normal scan. Normal ejection fraction.
[2022-10-25 16:51] VITALS: BP 151/80; PULSE 84; O2SAT 98
--- NOTE | 2022-12-15 22:32 | PCM.SSS ---
History of Present Illness - Chief Complaint Chief Complaint: Vomitingintractable, RUQ pain History of Present Illness: is a 62 year old male patient of Dr. Virk who has had abdominal pain and vomiting intermittently over the last few weeks. He was seen in our emergency department on 10/22/2022. At that time he was found to have a cystitis present. On CAT scan he had diffuse fecal stasis, a distended urinary bladder with circumferential wall thickening, a small hiatal hernia and an enlarged prostate. His CBC, CMP, amylase, lipase and lactic acid were all within the normal limits. At the time of his discharge on 10/22/2022, patient states he is feeling much better. He was discharged to home. He followed up with his drain technician on 10/23/2022. However his vomiting recurred. At the time of his discharge on 10/22/2022 instructions were given to him to follow-up with the urologist, his primary care physician to evaluate his gallbladder and to see a oyster culler if indicated to perform an upper endoscopy. Additional history was obtained from the patient's spouse. Patient has a history of hyperlipidemia, diabetes, arthritis, gastroesophageal reflux disease, irritable bowel syndrome, anxiety/panic disorder. Patient is a daily smoker of marijuana. He has not had any abdominal surgeries. - Review of Systems Constitutional: No Fever, No Chills Eyes: No Symptoms Ears, Nose, & Throat: No Symptoms Respiratory: No Cough, No Short Of Breath Cardiac: No Chest Pain, No Edema, No Syncope Abdominal/Gastrointestinal: Abdominal Pain, Nausea, Vomiting, No Diarrhea Genitourinary Symptoms: No Dysuria Musculoskeletal: No Back Pain, No Neck Pain Skin: No Rash Neurological: No Dizziness, No Focal Weakness, No Sensory Changes Psychological: No Symptoms Endocrine: No Symptoms Hematologic/Lymphatic: No Symptoms Immunological/Allergic: No Symptoms Medications & Allergies Home Medications: Home Medication List Pregabalin [Lyrica] 150 mg PO TID 01/15/13 [History Confirmed 10/24/22] ARIPiprazole [Aripiprazole] 5 mg PO DAILY 09/12/19 [History Confirmed 10/24/22] Empagliflozin [Jardiance] 25 mg PO DAILY 09/12/19 [History Confirmed 10/24/22] Metformin HCl 500 mg [Glucophage 500 MG] 1,000 mg PO BID 09/12/19 [History Confirmed 10/24/22] Tamsulosin HCl 0.4 mg PO DAILY 09/12/19 [History Confirmed 10/24/22] Hydroxychloroquine Sulfate 200 mg PO BID 05/30/22 [History Confirmed 10/24/22] Insulin Detemir [Levemir] 20 unit SQ HS 05/30/22 [History Confirmed 10/24/22] Rosuvastatin Calcium 20 mg PO HS 05/30/22 [History Confirmed 10/24/22] Venlafaxine HCl [Venlafaxine HCl ER] 150 mg PO DAILY 05/30/22 [History Confirmed 10/24/22] Cefdinir 300 mg PO BID 10/24/22 [History Confirmed 10/24/22] Fenofibrate Nanocrystallized [Fenofibrate] 48 mg PO DAILY 10/24/22 [History Confirmed 10/24/22] Glipizide 5 mg [Glucotrol 5 MG] 5 mg PO BID 10/24/22 [History Confirmed 10/24/22] Allergies/Adverse Reactions: Allergies Allergy/AdvReac Type Severity Reaction Status Date / Time Sulfa (Sulfonamide Allergy Mild n/v hot Verified 10/24/22 08:20 Antibiotics) cold - Past Medical History Past Medical History: Yes Neurological History: No Pertinent History ENT History: No Pertinent History Cardiac History: High Cholesterol Respiratory History: No Pertinent History Endocrine Medical History: Diabetes Type II Musculoskelatal History: Arthritis, Fractures GI Medical History: GERD, Hemorrhoids, Irritable Bowel, Polyps History: No Pertinent History Pyscho-Social History: Anxiety, Depression, Panic Disorder Male Reproductive Disorders: Other Comment: R Knee Scope () - Past Surgical History Past Surgical History: Yes Neuro Surgical History: No Pertinent History Cardiac History: No Pertinent History Respiratory Surgery: No Pertinent History GI Surgical History: No Pertinent History, Other Genitourinary Surgical Hx: No Pertinent History Musculskeletal Surgical Hx: Orthopedic Surgery Male Surgical History: No Pertinent History Other Surgical History: back, rt side carpal tunnel surgery, wart removal, colonoscopy with polyp removal. knee scope. - Social History Smoking Status: Former smoker How long have you smoked: vapor Exposure to second hand smoke: No Alcohol: Occasionally Drug Use: marijuana Significant Family History: no pertinent family hx - Physical Exam General Appearance: no apparent distress, alert Neurologic Exam: alert, oriented x 3, cooperative, normal mood/affect, nml cerebellar function, nml station & gait, sensation nml, No motor deficits Eye Exam: PERRL/EOMI, eyes nml inspection Ears, Nose, Throat Exam: normal ENT inspection, TMs normal, pharynx normal, moist mucous membranes Neck Exam: normal inspection, non-tender, supple, full range of motion Respiratory Exam: normal breath sounds, lungs clear, No respiratory distress Cardiovascular Exam: regular rate/rhythm, normal heart sounds, normal peripheral pulses Gastrointestinal/Abdomen Exam: soft, normal bowel sounds, No tenderness, No mass Back Exam: normal inspection, normal range of motion, No CVA tenderness, No vertebral tenderness Extremity Exam: normal inspection, normal range of motion, pelvis stable Skin Exam: normal color, warm, dry, No rash Lymphatic Exam: No adenopathy Assessment/Plan (1) Marijuana abuse Status: Acute Code(s): F12.10 - CANNABIS ABUSE, UNCOMPLICATED (2) Intractable vomiting Status: Acute Code(s): R11.10 - VOMITING, UNSPECIFIED (3) Right upper quadrant abdominal pain Status: Acute Code(s): R10.11 - RIGHT UPPER QUADRANT PAIN Hospital Summary - Hospital Course Hospital Course: Pt. notes symptoms resolved and feeling much better, exam is normal, discussed marijuana induced hyperemesis syndrome, pt. ready for discharge, understanding his diagnosis. Ultrasound and HIDA scan both negative for abnormalities, labs remained stable. - Vitals & Intake/Output Vital Signs: Vital Signs Temperature 98.2 F 10/25/22 16:00 Pulse Rate 84 10/25/22 16:00 Respiratory Rate 18 10/25/22 16:00 Blood Pressure 151/80 10/25/22 16:00 O2 Sat by Pulse Oximetry 98 10/25/22 16:00 - Lab Result Diagrams: 10/25/22 04:40 10/25/22 04:40 - Discharge Discharge Date: 10/25/22 Disposition: Home, Self-Care Condition: Stable Prescriptions: Continue Pregabalin [Lyrica] 150 mg PO TID ARIPiprazole [Aripiprazole] 5 mg PO DAILY Tamsulosin HCl 0.4 mg PO DAILY Metformin HCl 500 mg [Glucophage 500 MG] 1,000 mg PO BID Empagliflozin [Jardiance] 25 mg PO DAILY Rosuvastatin Calcium 20 mg PO HS Insulin Detemir [Levemir] 20 unit SQ HS Hydroxychloroquine Sulfate 200 mg PO BID Venlafaxine HCl [Venlafaxine HCl ER] 150 mg PO DAILY Glipizide 5 mg [Glucotrol 5 MG] 5 mg PO BID Fenofibrate Nanocrystallized [Fenofibrate] 48 mg PO DAILY Cefdinir 300 mg PO BID Instructions: Nausea and Vomiting, Adult (DC), Cannabis Hyperemesis Syndrome Follow up with: CAMERON VIRK [Primary Care Provider] - 10/29/22 9:30 am Forms: Discharge Instructions
== END 2022-10-25 17:00 | disposition home or self-care (01) ==
LOC: ED 08:06 → MED SURG 13:09
PROVIDERS: ADMIT Family Medicine; ATTEND Family Medicine
DX: F12.10 Cannabis abuse, uncomplicated (principal); R11.10 Vomiting, unspecified; R10.11 Right upper quadrant pain; E78.5 Hyperlipidemia, unspecified; E11.9 Type 2 diabetes mellitus without complications; K44.9 Diaphragmatic hernia without obstruction or gangrene; N40.0 Benign prostatic hyperplasia without lower urinary tract symptoms; Z79.899 Other long term (current) drug therapy; Z20.828 Contact with and (suspected) exposure to other viral communicable diseases
CPT/HCPCS: 0241U; 36000; 36415; 76705; 78227; 80053; 81001; 82150; 82947; 83036; 83605; 83690; 85025; 96360; 96374; 96375; 99284; A9537; G0378; J1170; J2405; J2805; A9270-GY

== ENCOUNTER 2024-05-09 09:54 | Emergency (ER) | payer MEDICARE ==
--- NOTE | 2024-05-09 10:31 | ERPHSYRPT ---
- History of Present Illness Time Seen by Provider: 05/09/24 10:31 Historian: patient Exam Limitations: no limitations Physician History: The patient, a known diabetic, presents with a three-day history of persistent vomiting, suspected to be food poisoning. He reports a similar episode in the past that required hospitalization. Accompanying symptoms include abdominal pain, predominantly in the upper quadrants, and chills. The patient denies any chest pain, shortness of breath, dysuria, hematuria, bloody vomit, diarrhea, or leg swelling. Despite a brief period of feeling better, the vomiting resumed around midnight. The patient has not had a bowel movement recently, but reports frequent urination. His diabetes management includes daily insulin, specifically an evening dose. However, recent blood glucose levels have been elevated, around 180. The patient has a history of hospitalization due to high blood sugar levels requiring IV treatment. He reports no new medications and a known allergy to sulfa. Timing/Duration: day(s) (3) Activities at Onset: rest Quality: sharpness, stabbing Abdominal Pain Onset Location: epigastric Pain Radiation: no radiation Severity of Pain-Max: severe Severity of Pain-Current: severe Modifying Factors: Improves With: nothing. Worsens With: eating, movement, palpation, vomiting Associated Symptoms: loss of appetite, nausea, vomiting, weakness, No chest pain, No diaphoresis, No diarrhea, No fever/chills, No neck pain, No rash, No shortness of breath Previous symptoms: same symptoms as today Allergies/Adverse Reactions: Sulfa (Sulfonamide Antibiotics) Allergy (Mild, Verified 05/09/24 10:41) n/v hot cold Home Medications: Pregabalin [Lyrica] 150 mg PO TID 01/15/13 [History] ARIPiprazole [Aripiprazole] 5 mg PO DAILY 09/12/19 [History] Empagliflozin [Jardiance] 25 mg PO DAILY 09/12/19 [History] Metformin HCl 500 mg [Glucophage 500 MG] 1,000 mg PO BID 09/12/19 [History] Tamsulosin HCl 0.4 mg PO DAILY 09/12/19 [History] Insulin Detemir [Levemir] 20 unit SQ HS 05/30/22 [History] Rosuvastatin Calcium 20 mg PO HS 05/30/22 [History] Venlafaxine HCl [Venlafaxine HCl ER] 150 mg PO DAILY 05/30/22 [History] Fenofibrate Nanocrystallized [Fenofibrate] 48 mg PO DAILY 10/24/22 [History] Glipizide 5 mg [Glucotrol 5 MG] 5 mg PO BID 10/24/22 [History] Belimumab [Benlysta] 200 mg SQ WEEKLY 05/09/24 [History] Hx Tetanus, Diphtheria Vaccination/Date Given: Yes Hx Influenza Vaccination/Date Given: No Hx Pneumococcal Vaccination/Date Given: No - Review of Systems All Other Systems: Reviewed and Negative - Past Medical History Pertinent Past Medical History: Yes Neurological History: No Pertinent History ENT History: No Pertinent History Cardiac History: High Cholesterol Respiratory History: No Pertinent History Endocrine Medical History: Diabetes Type II Musculoskeletal History: Arthritis, Fractures GI Medical History: GERD, Hemorrhoids, Irritable Bowel, Polyps History: No Pertinent History Psycho-Social History: Anxiety, Depression, Panic Disorder Male Reproductive Disorders: Other Other Medical History: R Knee Scope () - Past Surgical History Past Surgical History: Yes Neuro Surgical History: No Pertinent History Cardiac: No Pertinent History Respiratory: No Pertinent History Gastrointestinal: No Pertinent History, Other Genitourinary: No Pertinent History Musculoskeletal: Orthopedic Surgery Male Surgical History: No Pertinent History Other Surgical History: back, rt side carpal tunnel surgery, wart removal, colonoscopy with polyp removal. knee scope. Significant Family History: no pertinent family hx - Social History Smoking Status: Former smoker How long have you smoked: vapor Exposure to second hand smoke: No Alcohol Use: None Drug Use: marijuana Patient Lives Alone: Yes - Nursing Vital Signs Nursing Vital Signs: Initial Vital Signs Temperature 98.1 F 05/09/24 10:31 Pulse Rate 97 H 05/09/24 10:31 Blood Pressure 189/125 05/09/24 10:31 O2 Sat by Pulse Oximetry 98 05/09/24 10:31 Pain Scale Pain Intensity 5 - Physical Exam General Appearance: mild distress Eye Exam: eyes nml inspection Ears, Nose, Throat Exam: normal ENT inspection Neck Exam: normal inspection, non-tender, supple, full range of motion Respiratory Exam: normal breath sounds, lungs clear, airway intact, No respiratory distress Cardiovascular Exam: regular rate/rhythm, normal heart sounds, capillary refill <2 sec, No edema Gastrointestinal/Abdomen Exam: soft, tenderness (epigastric), distention, No mass, No guarding, No rebound Neurologic Exam: alert, oriented x 3, cooperative Skin Exam: normal color, warm, dry, No rash SpO2 Interpretation: normal O2 Delivery: Room Air - Course Nursing assessment & vital signs reviewed: Yes EKG Interpreted by Me: RATE (86), Sinus Rhythm, NORMAL AXIS, NORMAL INTERVALS, Right Bundle Branch Block, Other (No continguous ST elevation) - CT Exams Abdomen/Pelvis CT Interpretation: Tele-radiologist Report, Normal Appendix, Other (BOSNAIK III right renal cyst) Ordered Tests: Medication Summary Discontinued Medications Generic Name Dose Route Start Last Admin Trade Name Freq PRN Reason Stop Dose Admin Droperidol 1.25 mg 05/09/24 10:51 05/09/24 10:59 Droperidol 5 Mg/2 Ml Vial IV 05/09/24 10:52 1.25 mg STAT ONE Administration Droperidol Confirm 05/09/24 10:57 Droperidol 5 Mg/2 Ml Vial Administered 05/09/24 10:58 Dose 5 mg .ROUTE .STK-MED ONE Sodium Chloride 1,000 mls @ 999 mls/hr 05/09/24 10:51 05/09/24 12:52 Sodium Chloride 0.9% 1000 Ml IV 05/09/24 11:51 Infused .Q1H1M STA Infusion Sodium Chloride Confirm 05/09/24 10:57 Sodium Chloride 0.9% 1000 Ml Administered 05/09/24 10:58 Dose 1,000 mls @ ud .ROUTE .STK-MED ONE Sodium Chloride 1,000 mls @ 999 mls/hr 05/09/24 14:19 05/09/24 15:39 Sodium Chloride 0.9% 1000 Ml IV 05/09/24 15:19 Infused .Q1H1M STA Infusion Sodium Chloride Confirm 05/09/24 14:21 Sodium Chloride 0.9% 1000 Ml Administered 05/09/24 14:22 Dose 1,000 mls @ ud .ROUTE .STK-MED ONE Insulin Human Lispro 6 unit 05/09/24 13:26 05/09/24 14:13 Insulin Lispro 1 Unit SQ 05/09/24 13:27 6 unit STAT ONE Administration Insulin Human Lispro Confirm 05/09/24 14:11 Insulin Lispro 1 Unit Administered 05/09/24 14:12 Dose 6 unit .ROUTE .K-MED ONE Lab/Rad Data: Laboratory Result Diagrams 05/09/24 11:05 05/09/24 11:05 Laboratory Results 05/09/24 05/09/24 05/09/24 Range/Units 15:10 13:42 13:27 WBC (4.23-9.07) x10^3/uL RBC (4.63-6.08) x10^6/uL Hgb (13.7-17.5) g/dL Hct (40.1-51.0) % MCV (79.0-92.2) fL MCH (25.7-32.2) pg MCHC (32.3-36.5) g/dL RDW (11.6-14.4) % Plt Count (163-337) x10^3/uL MPV (9.4-12.4) fL Gran % (34.0-67.9) % Immature Gran % (Auto) (0.001-0.429) % Nucleat RBC Rel Count (0.00-0.2) % Eos # (Auto) (0.04-0.54) x10^3/uL Immature Gran # (Auto) (0.001-0.031) x10^3u/L Absolute Lymphs (auto) (1.32-3.57) x10^3/uL Absolute Monos (auto) (0.30-0.82) x10^3/uL Absolute Nucleated RBC (0.00-0.012) x10^3u/L Lymphocytes % (21.8-53.1) % Monocytes % (5.3-12.2) % Eosinophils % (0.8-7.0) % Basophils % (0.2-1.2) % Absolute Granulocytes (1.78-5.38) x10^3/uL Basophils # (0.01-0.08) x10^3/uL pO2/FiO2 Ratio % VBG pH (7.32-7.42) VBG pCO2 at Pat Temp (42-55) mm/Hg VBG pO2 at Pat Temp (25-40) mm/Hg VBG HCO3 (22-28) meq/L VBG O2 Sat (Ivy) (95-100) VBG Base Excess (-2.0-2.0) VBG Hemoglobin VBG Carboxyhemoglobin (0.0-6.9) % T HGB POC Potassium (3.5-5.1) Sodium (135-145) mmol/L Potassium (3.5-5.1) mmol/L Chloride (98-107) mmol/L Carbon Dioxide (22-30) mmol/L Anion Gap (5-15) MEQ/L BUN (9-20) mg/dL Creatinine (0.66-1.25) mg/dL Estimated GFR ML/MIN Glucose (74-106) mg/dL Lactic Acid 1.6 (0.4-2.0) Calcium (8.4-10.2) mg/dL Total Bilirubin (0.2-1.3) mg/dL AST (17-59) U/L ALT (0-50) U/L Alkaline Phosphatase (38-126) U/L Troponin I < 0.012 (0.000-0.033) ng/mL Serum Total Protein (6.3-8.2) g/dL Albumin (3.5-5.0) g/dL Lipase (23-300) U/L Urine Color Yellow (Yellow) Urine Appearance Clear (Clear) Urine pH 6.0 (4.6-8.0) Ur Specific [place] >=1.030 A (1.005-1.030) Urine Protein 300 A (Negative) Urine Glucose (UA) >=1000 A (Negative) mg/dL Urine Ketones Negative (Negative) Urine Blood Trace (Negative) Urine Nitrite Negative (Negative) Urine Bilirubin Negative (Negative) Urine Urobilinogen 0.2 (0.2) mg/dL Ur Leukocyte Esterase Negative (Negative) U Hyaline Cast (Auto) None Seen (0-2) /LPF Urine Microscopic RBC 0-2 (0-5) /HPF Urine Microscopic WBC 3-5 (0-5) /HPF Ur Epithelial Cells Rare (None Seen) /HPF Urine Bacteria Rare A (None Seen) /HPF Urine Culture Reflexed YES (NO) 05/09/24 05/09/24 05/09/24 Range/Units 11:05 11:05 11:05 WBC (4.23-9.07) x10^3/uL RBC (4.63-6.08) x10^6/uL Hgb (13.7-17.5) g/dL Hct (40.1-51.0) % MCV (79.0-92.2) fL MCH (25.7-32.2) pg MCHC (32.3-36.5) g/dL RDW (11.6-14.4) % Plt Count (163-337) x10^3/uL MPV (9.4-12.4) fL Gran % (34.0-67.9) % Immature Gran % (Auto) (0.001-0.429) % Nucleat RBC Rel Count (0.00-0.2) % Eos # (Auto) (0.04-0.54) x10^3/uL Immature Gran # (Auto) (0.001-0.031) x10^3u/L Absolute Lymphs (auto) (1.32-3.57) x10^3/uL Absolute Monos (auto) (0.30-0.82) x10^3/uL Absolute Nucleated RBC (0.00-0.012) x10^3u/L Lymphocytes % (21.8-53.1) % Monocytes % (5.3-12.2) % Eosinophils % (0.8-7.0) % Basophils % (0.2-1.2) % Absolute Granulocytes (1.78-5.38) x10^3/uL Basophils # (0.01-0.08) x10^3/uL pO2/FiO2 Ratio 21.0 % VBG pH 7.38 (7.32-7.42) VBG pCO2 at Pat Temp 48 (42-55) mm/Hg VBG pO2 at Pat Temp 24 L (25-40) mm/Hg VBG HCO3 28.4 H (22-28) meq/L VBG O2 Sat (Ivy) 45.1 L (95-100) VBG Base Excess 2.3 H (-2.0-2.0) VBG Hemoglobin 16.7 VBG Carboxyhemoglobin 1.9 (0.0-6.9) % T HGB POC Potassium 4.2 (3.5-5.1) Sodium 136 (135-145) mmol/L Potassium 3.9 (3.5-5.1) mmol/L Chloride 92 L (98-107) mmol/L Carbon Dioxide 28 (22-30) mmol/L Anion Gap 19.6 H (5-15) MEQ/L BUN 26 H (9-20) mg/dL Creatinine 1.32 H (0.66-1.25) mg/dL Estimated GFR 59.9 ML/MIN Glucose 200 H (74-106) mg/dL Lactic Acid (0.4-2.0) Calcium 9.9 (8.4-10.2) mg/dL Total Bilirubin 0.60 (0.2-1.3) mg/dL AST 46 (17-59) U/L ALT 35 (0-50) U/L Alkaline Phosphatase 74 (38-126) U/L Troponin I < 0.012 (0.000-0.033) ng/mL Serum Total Protein 8.5 H (6.3-8.2) g/dL Albumin 4.8 (3.5-5.0) g/dL Lipase 511 H (23-300) U/L Urine Color (Yellow) Urine Appearance (Clear) Urine pH (4.6-8.0) Ur Specific [place] (1.005-1.030) Urine Protein (Negative) Urine Glucose (UA) (Negative) mg/dL Urine Ketones (Negative) Urine Blood (Negative) Urine Nitrite (Negative) Urine Bilirubin (Negative) Urine Urobilinogen (0.2) mg/dL Ur Leukocyte Esterase (Negative) U Hyaline Cast (Auto) (0-2) /LPF Urine Microscopic RBC (0-5) /HPF Urine Microscopic WBC (0-5) /HPF Ur Epithelial Cells (None Seen) /HPF Urine Bacteria (None Seen) /HPF Urine Culture Reflexed (NO) 05/09/24 05/09/24 Range/Units 11:05 11:05 WBC 9.7 H (4.23-9.07) x10^3/uL RBC 5.59 (4.63-6.08) x10^6/uL Hgb 15.9 (13.7-17.5) g/dL Hct 47.9 (40.1-51.0) % MCV 85.7 (79.0-92.2) fL MCH 28.4 (25.7-32.2) pg MCHC 33.2 (32.3-36.5) g/dL RDW 13.4 (11.6-14.4) % Plt Count 320 (163-337) x10^3/uL MPV 9.7 (9.4-12.4) fL Gran % 82.3 H (34.0-67.9) % Immature Gran % (Auto) 0.3 (0.001-0.429) % Nucleat RBC Rel Count 0.0 (0.00-0.2) % Eos # (Auto) 0.03 L (0.04-0.54) x10^3/uL Immature Gran # (Auto) 0.03 (0.001-0.031) x10^3u/L Absolute Lymphs (auto) 1.19 L (1.32-3.57) x10^3/uL Absolute Monos (auto) 0.44 (0.30-0.82) x10^3/uL Absolute Nucleated RBC 0.00 (0.00-0.012) x10^3u/L Lymphocytes % 12.2 L (21.8-53.1) % Monocytes % 4.5 L (5.3-12.2) % Eosinophils % 0.3 L (0.8-7.0) % Basophils % 0.4 (0.2-1.2) % Absolute Granulocytes 7.99 H (1.78-5.38) x10^3/uL Basophils # 0.04 (0.01-0.08) x10^3/uL pO2/FiO2 Ratio % VBG pH (7.32-7.42) VBG pCO2 at Pat Temp (42-55) mm/Hg VBG pO2 at Pat Temp (25-40) mm/Hg VBG HCO3 (22-28) meq/L VBG O2 Sat (Ivy) (95-100) VBG Base Excess (-2.0-2.0) VBG Hemoglobin VBG Carboxyhemoglobin (0.0-6.9) % T HGB POC Potassium (3.5-5.1) Sodium (135-145) mmol/L Potassium (3.5-5.1) mmol/L Chloride (98-107) mmol/L Carbon Dioxide (22-30) mmol/L Anion Gap (5-15) MEQ/L BUN (9-20) mg/dL Creatinine (0.66-1.25) mg/dL Estimated GFR ML/MIN Glucose (74-106) mg/dL Lactic Acid 3.3 H (0.4-2.0) Calcium (8.4-10.2) mg/dL Total Bilirubin (0.2-1.3) mg/dL AST (17-59) U/L ALT (0-50) U/L Alkaline Phosphatase (38-126) U/L Troponin I (0.000-0.033) ng/mL Serum Total Protein (6.3-8.2) g/dL Albumin (3.5-5.0) g/dL Lipase (23-300) U/L Urine Color (Yellow) Urine Appearance (Clear) Urine pH (4.6-8.0) Ur Specific [place] (1.005-1.030) Urine Protein (Negative) Urine Glucose (UA) (Negative) mg/dL Urine Ketones (Negative) Urine Blood (Negative) Urine Nitrite (Negative) Urine Bilirubin (Negative) Urine Urobilinogen (0.2) mg/dL Ur Leukocyte Esterase (Negative) U Hyaline Cast (Auto) (0-2) /LPF Urine Microscopic RBC (0-5) /HPF Urine Microscopic WBC (0-5) /HPF Ur Epithelial Cells (None Seen) /HPF Urine Bacteria (None Seen) /HPF Urine Culture Reflexed (NO) - Progress Progress: improved Progress Note: Patient has mildly elevated lipase not meeting criteria for acute pancreatitis diagnosis. Recommended bowel rest, hydration and pain control. His DM is not controlled, not meeting criteria for DKA at this time, no ketones in urine, normal pH. Patient chose to go home vs stay in hospital for sx managment. Advised f/u with DM provider to better control glucose levels. Sent Perry and Zofran to pharmacy. Return to ER if sxs worsen. Counseled pt/family regarding: lab results, diagnosis, need for follow-up, rad results Medical Desision Making - Diagnostic Testing Diagnostic test were ordered, analyzed, and reviewed by me: Yes Radiological Interpretation: Interpreted by me, Reviewed by me, Teleradiologist Report - Risk of complications The pt has a mod risk of morbidity or mortality based on: Need for prescription drug management - Departure Departure Disposition: Home Clinical Impression: Diabetes mellitus type 2, uncontrolled, with complications, Recurrent vomiting, Intractable vomiting, Gastroenteritis, Dehydration, Elevated lipase, SANDRA (acute kidney injury), Elevated lactic acid level Condition: Good Critical Care Time: No Referrals: CAMERON PONCE [Primary Care Provider] - Follow up/PCP as directed Instructions: Acute pancreatitis, Type 2 diabetes Prescriptions: Hydrocodone/Acetaminophen [Hydrocodone-Acetamin 5-325 mg] 1 tab PO Q6HPRN PRN 5 Days #20 tablet MDD 4 PRN Reason: Pain Hydrocodone/Acetaminophen [Hydrocodone-Acetamin 10-325 mg] 0.5 each PO Q6H PRN 5 Days #10 tablet MDD 2 tab PRN Reason: Pain ondansetron HCL [Zofran] 8 mg PO TID PRN 5 Days #15 tablet PRN Reason: Nausea/Vomiting
[2024-05-09 10:41] VITALS: PULSE 97; TEMP 98.1
[2024-05-09] MEDS ORDERED: Sodium Chloride 0.9% 1000 ML 1,000 ML ONE ×2 (10:57→14:21)
[2024-05-09] MEDS: Sodium Chloride 0.9% 1000 ML 1,000 ML IV STA ×2 (11:00→14:24)
[2024-05-09 11:15] LABS: Absolute Neutrophil Ct (ANC) 7.99 x10^3/uL (1.78-5.38); BASOPHIL % 0.4 % (0.2-1.2); Basophil (Absolute #) 0.04 x10^3/uL (0.01-0.08); Eosinophil % 0.3 % (0.8-7.0); Eosinophil (Absolute #) 0.03 x10^3/uL (0.04-0.54); Hematocrit 47.9 % (40.1-51.0); Hemoglobin 15.9 g/dL (13.7-17.5); IMMATURE GRAN # 0.03 x10^3u/L (0.001-0.031); IMMATURE GRAN % 0.3 % (0.001-0.429); Lymphocyte (Absolute #) 1.19 x10^3/uL (1.32-3.57); Lymphocytes % 12.2 % (21.8-53.1); Mean Cell Volume 85.7 fL (79.0-92.2); Mean Corpuscular Hemoglobin 28.4 pg (25.7-32.2); Mean Corpuscular Hgb Concent. 33.2 g/dL (32.3-36.5); Mean Platelet Volume 9.7 fL (9.4-12.4); Monocyte (Absolute #) 0.44 x10^3/uL (0.30-0.82); Monocytes % 4.5 % (5.3-12.2); Neutrophil % 82.3 % (34.0-67.9); Platelet Count 320 x10^3/uL (163-337); Red Blood Count 5.59 x10^6/uL (4.63-6.08); Red Cell Distribution Width 13.4 % (11.6-14.4); White Blood Count 9.7 x10^3/uL (4.23-9.07)
[2024-05-09 11:25] LABS: ALBUMIN 4.8 g/dL (3.5-5.0); ANION GAP 19.6 MEQ/L (5-15); BILIRUBIN,TOTAL 0.6 mg/dL (0.2-1.3); Calcium 9.9 mg/dL (8.4-10.2); Creatinine 1 1.32 mg/dL (0.66-1.25); EST GLOMERULAR FILTRATION RATE 59.9 ML/MIN; Potassium 3.9 mmol/L (3.5-5.1); Total Protein 8.5 g/dL (6.3-8.2)
[2024-05-09 11:29] LABS: VBG BASE EXCESS 2.3 (-2.0-2.0); VBG CARBOXYHEMOGLOBIN 1.9 % T HGB (0.0-6.9); VBG HCO3- 28.4 meq/L (22-28); VBG HEMOGLOBIN 16.7; VBG O2 SATURATION 45.1 (95-100); VBG POTASSIUM 4.2 (3.5-5.1); VBG pH 7.38 (7.32-7.42)
[2024-05-09 12:52] VITALS: O2SAT 94
--- NOTE | 2024-05-09 13:10 | XRAY ---
CLINICAL HISTORY: abd pain COMPARISON: CT dated 10/22/2022 TECHNIQUE: CT scan of the abdomen and pelvis was performed with IV contrast. Coronal and sagittal reconstructive images were also obtained. One of the following dose-reduction techniques was utilized for this exam.Automated exposure control, adjustment of the mA and/or kV according to patient size, and use of iterative reconstruction. FINDINGS: Abdomen: The liver is enlarged and measures about 20 cm in craniocaudal axis, shows decreased attenuation compatible with fatty infiltration. No focal or diffuse parenchymal abnormality. The portal vein, intrahepatic biliary radicals, and the bile ducts are normal. The pancreas and adrenal glands are unremarkable. Mildly enlarged spleen measuring 13.2 cm along maximum span, no focal lesions. The kidneys are unremarkable. They are normal in size and shape. No calculi or hydronephrosis. Right renal upper polar cortical cysts, measuring 22 and 32 mm, the largest show mural suspicious enhancement mostly at its caudal cuts, meanwhile the smaller shows fine mildly enhanced septa along its lateral aspect. The gallbladder shows mild circumferential mural thickening. No pericholecystic collection or radio-dense calculi in the gall bladder. The ascending colon, the transverse colon, the descending colon, visualized small bowel loops are unremarkable. Normal appearing appendix. There is no evidence of significant enlargement of the mesenteric or retroperitoneal lymph nodes. Mild atheromatous calcification of the abdominal aorta and iliac arteries. A small sliding hiatus hernia. A Circumferential mural thickening of the fundus and body of the stomach is noted. Pelvis: The urinary bladder is well distended showing mild circumferential mural thickening, no stones or diverticular outpouchings. The rectosigmoid colon is unremarkable. A moderately enlarged prostate is noted, indenting the base of the urinary bladder. The rest of the pelvic structures are unremarkable. The pelvic vasculature is unremarkable. No evidence of pelvic lymphadenopathy. Bilateral benign looking inguinal lymphnodes seen. Spondylodegenrative changes of the lumbar spine, with mild retrolithesis of L2 over L3 vertebral bodies. patchy sclerosis of the anteroinferior aspect of L2 vertebral bodies, which could be part of the degenerative changes or old traumatic sequels, needs clinical correlation. A well-defined right acetabular anterior column benign-looking lytic lesion measuring 11 mm, showing a sclerotic rim, no cortical break or extra-osseous soft tissue components, likely a geode. Sclerotic areas are noted within L3 and L1 vertebral bodies, likely sclerotic hemangiomas. Lower Ct chest cuts show mild cardiomegaly with left ventricular hypertrophy. Bilateral basal subpleural ground-glass attenuation, likely gravitational. IMPRESSION: 1. Hepatosplenomegaly.Fatty infiltration of liver 2. Right renal upper polar cortical cysts, measuring 22 and 32 mm, the largest show mural suspicious enhancement mostly at its caudal cuts (BOSNAIK III), meanwhile the smaller shows fine mildly enhanced septa along its lateral aspect( BOSNAIK II) and need further contrast-enhanced MRI characterization. 3. Normal appearing appendix. 4. A small sliding hiatus hernia. A Circumferential mural thickening of the fundus and body of the stomach suggests gastritis, need clinical correlation. 5. A moderately enlarged prostate is noted, indenting the base of the urinary bladder, which needs serum PSA correlation. 6. Vesicle mild circumferential mural thickening, suggests cystitis and needs clinical and lab correlation. 7. Compared to the previous CT, the contrast enhanced study adds more characterization of the right renal cysts, with no significant interval changes in the rest of the findings. Electronically Signed by: Shayla Garcia MD. (05/09/2024 13:06:43 EDT)
[2024-05-09 14:01] LABS: Appearance Clear (Clear); Bilirubin Negative (Negative); Blood Trace (Negative); Glucose, Urine >=1000 mg/dL (Negative); Ketones Negative (Negative); Leukocyte Esterase Negative (Negative); Nitrite Negative (Negative); Protein,Urine Dip 300 (Negative); RBC 0-2 /HPF (0-5); Specific Gravity >=1.030 (1.005-1.030); Urobilinogen 0.2 mg/dL (0.2)
[2024-05-09 14:03] LABS: ADD URINE CULTURE? YES (NO); Bacteria Rare /HPF (None Seen); Epithelial Cells Rare /HPF (None Seen); Hyaline Casts None Seen /LPF (0-2)
[2024-05-09] MEDS ORDERED: HUMALOG ONE (14:11)
[2024-05-09] MEDS: HUMALOG SQ ONE (14:13)
[2024-05-09 15:18] VITALS: BP 124/68
== END 2024-05-09 15:46 | disposition home or self-care (01) ==
LOC: ED 09:54
DX: E11.65 Type 2 diabetes mellitus with hyperglycemia (principal); E11.8 Type 2 diabetes mellitus with unspecified complications; R11.2 Nausea with vomiting, unspecified; K52.9 Noninfective gastroenteritis and colitis, unspecified; E86.0 Dehydration; R74.8 Abnormal levels of other serum enzymes; N17.9 Acute kidney failure, unspecified; R79.89 Other specified abnormal findings of blood chemistry; R10.9 Unspecified abdominal pain; E78.5 Hyperlipidemia, unspecified; Z79.891 Long term (current) use of opiate analgesic; Z79.84 Long term (current) use of oral hypoglycemic drugs; Z79.4 Long term (current) use of insulin; Z79.899 Other long term (current) drug therapy
CPT/HCPCS: 36415; 74177; 80053; 81001; 82805; 83605; 83690; 84484; 85025; 87077; 87086; 87186; 93005; 96360; 96361; 96372; 96374; 99284; J1817